=== PATIENT | male | born 1945 | race American Indian/Alaskan Native ===

== ENCOUNTER 2019-08-01 14:16 | Inpatient (IN) | payer MEDICARE ==
--- NOTE | 2019-08-01 16:13 | Emergency Department Report ---
ED Shortness of Breath HPI - General Chief Complaint: Weakness Stated Complaint: BRAYCARDIA Time Seen by Provider: 08/01/19 15:17 Source: patient, EMS Mode of arrival: Stretcher Limitations: Physical Limitation - History of Present Illness Initial Comments: 73-year-old male the past medical history hypertension, diabetes, COPD without home oxygen use, renal insufficiency not on dialysis, lung cancer treated with chemotherapy or radiation, thyroid cancer (current monitoring without active treatment), CVA residual right-sided weakness presents to the hospital complains of shortness of breath with exertion 2 weeks. Patient has associated weakness with shortness of breath episodes. He complains of some mild epigastric discomfort with deep inspiration. And lower back Today he felt scared to get up and walk due to the symptoms. He denies nausea, vomiting, fever, chest pain, diarrhea, or recent travel. Patient does not smoke cigarettes currently. PMD affiliated with the [facility]. Patient denies cardiac history. He is unsure of his current medications. - Related Data Allergies Allergy/AdvReac Type Severity Reaction Status Date / Time No Known Allergies Allergy Unverified 08/01/19 14:37 ED Review of Systems ROS: Stated complaint: BRAYCARDIA Other details as noted in HPI Comment: All other systems reviewed and negative ED Past Medical Hx - Past Medical History Previous Medical History?: Yes Hx Hypertension: Yes Hx Diabetes: Yes Hx Renal Disease: Yes (not on dialysis) Hx of Cancer: Yes (Lung and thyroid) Hx COPD: Yes - Surgical History Past Surgical History?: Yes ED Physical Exam - General Limitations: Physical Limitation - Other Other exam information: General: No acute distress Head: Atraumatic Eyes: normal appearance ENT: Moist mucous membranes Neck: Normal appearance, no midline tenderness Chest: Clear to auscultation bilaterally CV: Bradycardic regular rhythm Abdomen: Soft, normal bowel sounds, nontender, nondistended, no rebound or guarding Back: Normal inspection Extremity: Normal inspection infection, full range of motion, no calf tenderness or leg edema Neuro: Alert O x 3, no facial asymmetry, speech clear, no gross motor sensory deficit Psych: Appropriate behavior Skin: No rash ED Course Vital Signs 08/01/19 08/01/19 08/01/19 16:02 16:16 16:30 Pulse Rate 45 L 42 L Respiratory 16 20 20 Rate Blood Pressure 125/52 O2 Sat by Pulse 98 97 99 Oximetry 08/01/19 08/01/19 16:46 17:00 Pulse Rate Respiratory 17 19 Rate Blood Pressure 120/54 125/52 O2 Sat by Pulse 97 98 Oximetry - Consultations Consultation #1: 08/01/19 15:50 case d/w Dr Méndez (cardiology) will come to bedside to eval pt 17:11 case d/w industrial ecology technician Dr. Richard. Agrees with treatment for hyperkalemia (all meds provided with exception a Kayexalate). Recommends recheck of potassium after ED treatment. Will evaluate in consultation ED Medical Decision Making - Lab Data Result diagrams: 08/01/19 15:43 08/01/19 15:43 Lab Results 08/01/19 08/01/19 08/01/19 Range/Units 15:43 15:43 15:43 WBC 8.1 (4.5-11.0) K/mm3 RBC 3.44 L (3.65-5.03) M/mm3 Hgb 10.4 L (11.8-15.2) gm/dl Hct 31.7 L (35.5-45.6) % MCV 92 (84-94) fl MCH 30 (28-32) pg MCHC 33 (32-34) % RDW 13.9 (13.2-15.2) % Plt Count 187 (140-440) K/mm3 Lymph % (Auto) 6.8 L (13.4-35.0) % [place] % (Auto) 3.2 (0.0-7.3) % Eos % (Auto) 1.2 (0.0-4.3) % Baso % (Auto) 0.8 (0.0-1.8) % Lymph # 0.6 L (1.2-5.4) K/mm3 [place] # 0.3 (0.0-0.8) K/mm3 Eos # 0.1 (0.0-0.4) K/mm3 Baso # 0.1 (0.0-0.1) K/mm3 Seg Neutrophils % 88.0 H (40.0-70.0) % Seg Neutrophils # 7.1 (1.8-7.7) K/mm3 PT (12.2-14.9) Sec. INR (0.87-1.13) APTT (24.2-36.6) Sec. Sodium 141 (137-145) mmol/L Potassium 5.7 H (3.6-5.0) mmol/L Chloride 113.7 H (98-107) mmol/L Carbon Dioxide 11 L (22-30) mmol/L Anion Gap 22 mmol/L BUN 65 H (9-20) mg/dL Creatinine 5.9 H (0.8-1.5) mg/dL Estimated GFR 9 ml/min BUN/Creatinine Ratio 11 % Glucose 149 H (75-100) mg/dL Calcium 8.8 (8.4-10.2) mg/dL Magnesium 1.60 L (1.7-2.3) mg/dL Troponin T 0.076 H (0.00-0.029) ng/mL TSH (0.270-4.200) mlU/mL Free T4 (0.76-1.46) ng/dL 08/01/19 08/01/19 Range/Units 15:54 15:55 WBC (4.5-11.0) K/mm3 RBC (3.65-5.03) M/mm3 Hgb (11.8-15.2) gm/dl Hct (35.5-45.6) % MCV (84-94) fl MCH (28-32) pg MCHC (32-34) % RDW (13.2-15.2) % Plt Count (140-440) K/mm3 Lymph % (Auto) (13.4-35.0) % [place] % (Auto) (0.0-7.3) % Eos % (Auto) (0.0-4.3) % Baso % (Auto) (0.0-1.8) % Lymph # (1.2-5.4) K/mm3 [place] # (0.0-0.8) K/mm3 Eos # (0.0-0.4) K/mm3 Baso # (0.0-0.1) K/mm3 Seg Neutrophils % (40.0-70.0) % Seg Neutrophils # (1.8-7.7) K/mm3 PT 14.4 (12.2-14.9) Sec. INR 1.11 (0.87-1.13) APTT 29.7 (24.2-36.6) Sec. Sodium (137-145) mmol/L Potassium (3.6-5.0) mmol/L Chloride (98-107) mmol/L Carbon Dioxide (22-30) mmol/L Anion Gap mmol/L BUN (9-20) mg/dL Creatinine (0.8-1.5) mg/dL Estimated GFR ml/min BUN/Creatinine Ratio % Glucose (75-100) mg/dL Calcium (8.4-10.2) mg/dL Magnesium (1.7-2.3) mg/dL Troponin T (0.00-0.029) ng/mL TSH 2.630 (0.270-4.200) mlU/mL Free T4 1.15 (0.76-1.46) ng/dL - EKG Data -: EKG Interpreted by Me ( no stemi) Rate: bradycardia (40) - Radiology Data Radiology results: report reviewed Chest x-ray: Parenchymal disease in the right suprahilar region may be inflammatory or neoplastic. Prior studies would be helpful for comparison if available. - Medical Decision Making Patient presents with a junctional rhythm but is maintaining his blood pressure. Patient has renal sufficiency with unknown baseline per presents with anion gap acidosis and hyperkalemia. Case discussed both with nephrology and cardiology customer service and sales consultant. Cardiology evaluated patient in the ED and nephrology will consulted while patient while admitted. Hyperkalemia cocktail administered with exception of Kayexalate as discussed with nephrology. Hospitalist informed for admission. Aspirin provided for mild elevated troponin likely secondary to renal insuf ficienc, repeat pending. Pt does not have cp. - Differential Diagnosis electrolyte abnormality, CHF, COPD, PE, [place], unstable angina, renal failure Critical Care Time: No Critical care attestation.: If time is entered above; I have spent that time in minutes in the direct care of this critically ill patient, excluding procedure time. ED Disposition Clinical Impression: Dyspnea on exertion, Hyperkalemia, Renal insufficiency, Metabolic acidosis, increased anion gap, Hypomagnesemia, Elevated troponin, Hx of cancer of lung, Thyroid ca, COPD (chronic obstructive pulmonary disease), HTN (hypertension), History of CVA with residual deficit, Junctional bradycardia Disposition: OP ADMIT IP TO THIS HOSP Is pt being admited?: Yes Does the pt Need Aspirin: Yes Condition: Stable Referrals: RUFINA CHASE MD [Primary Care Provider] - 3-5 Days Time of Disposition: 16:53
--- NOTE | 2019-08-01 16:17 | XRay Report ---
CHEST 1 VIEW 3:49 PM INDICATION / CLINICAL INFORMATION: Shortness of breath. COMPARISON: None available. FINDINGS: SUPPORT DEVICES: There is a right jugular Port-A-Cath with the tip overlying the distal SVC. HEART / MEDIASTINUM: The heart size and pulmonary vasculature are normal. LUNGS / PLEURA: There is mild, localized poorly defined parenchymal opacity in the right suprahilar r egion medially. The lungs are otherwise clear. No pneumothorax. ADDITIONAL FINDINGS: No significant additional findings. IMPRESSION: Parenchymal disease in the right suprahilar region may be inflammatory or neoplastic. Deana or studies would be helpful for comparison if available. Signer Name: Andreas Sotrey MD Signed: 08/01/2019 4:13 PM Workstation Name: [id number]
[2019-08-01 16:22] LABS: Basophils # (Auto) 0.1 K/mm3 (0.0-0.1); Basophils % (Auto) 0.8 % (0.0-1.8); Eosinophils # (Auto) 0.1 K/mm3 (0.0-0.4); Eosinophils % (Auto) 1.2 % (0.0-4.3); Hematocrit 31.7 % (35.5-45.6); Hemoglobin 10.4 gm/dl (11.8-15.2); Lymphocytes # (Auto) 0.6 K/mm3 (1.2-5.4); Lymphocytes % (Auto) 6.8 % (13.4-35.0); Mean Corpuscular HGB Conc 33 % (32-34); Mean Corpuscular Volume 92 fl (84-94); Monocytes # (Auto) 0.3 K/mm3 (0.0-0.8); Monocytes % (Auto) 3.2 % (0.0-7.3); Platelet Count 187 K/mm3 (140-440); Red Blood Count 3.44 M/mm3 (3.65-5.03); Red Cell Distribution Width 13.9 % (13.2-15.2)
[2019-08-01 16:31] LABS: INR 1.11 (0.87-1.13)
[2019-08-01 16:32] LABS: Partial Thromboplastin Time 29.7 Sec. (24.2-36.6)
[2019-08-01 16:44] LABS: Calcium 8.8 mg/dL (8.4-10.2)
[2019-08-01] MEDS ORDERED: ALBUTEROL 2.5 MG/3 ML NEBU IH ONE (16:49)
[2019-08-01 16:53] LABS: Free T4 (Free Thyroxine) 1.15 ng/dL (0.76-1.46)
[2019-08-01] MEDS ORDERED: SODIUM BICARB 8.4% 50 MEQ/50 ML SYRINGE IV ONE (16:54)
[2019-08-01] MEDS ORDERED: FUROSEMIDE 20 MG/2 ML INJ IV ONE (16:56)
[2019-08-01] MEDS ORDERED: SODIUM CHLORIDE 0.9% 1000 ML 1,000 ML IV ONE (16:56)
[2019-08-01] MEDS ORDERED: INSULIN REGULAR, HUMAN 100 UNITS/1 ML IV ONE (16:57)
--- NOTE | 2019-08-01 17:25 | Consultation ---
History of Present Illness Consult date: 08/01/19 Medications and Allergies Allergies Allergy/AdvReac Type Severity Reaction Status Date / Time No Known Allergies Allergy Unverified 08/01/19 14:37 Active Meds: Active Medications Dextrose (D50w (25gm) Syringe) 50 ml IV ONCE ONE; Protocol Stop: 08/01/19 18:01 Calcium Gluconate 1,000 mg/ (Sodium Chloride) 110 mls @ 660 mls/hr IV ONCE ONE Stop: 08/01/19 18:05 Sodium Chloride (Nacl 0.9% 1000 Ml) 1,000 mls @ 999 mls/hr IV BOLUS ONE Stop: 08/01/19 17:56 Physical Examination Vital Signs Pulse Resp Pulse Ox 45 L 16 98 08/01/19 16:02 08/01/19 16:02 08/01/19 16:02 Results 08/01/19 15:43 08/01/19 15:43 Coagulation 08/01/19 Range/Units 15:55 PT 14.4 (12.2-14.9) Sec. INR 1.11 (0.87-1.13) APTT 29.7 (24.2-36.6) Sec. CBC 08/01/19 Range/Units 15:43 WBC 8.1 (4.5-11.0) K/mm3 RBC 3.44 L (3.65-5.03) M/mm3 Hgb 10.4 L (11.8-15.2) gm/dl Hct 31.7 L (35.5-45.6) % Plt Count 187 (140-440) K/mm3 Lymph # 0.6 L (1.2-5.4) K/mm3 Carbon # 0.3 (0.0-0.8) K/mm3 Eos # 0.1 (0.0-0.4) K/mm3 Baso # 0.1 (0.0-0.1) K/mm3 Comprehensive Metabolic Panel 08/01/19 Range/Units 15:43 Sodium 141 (137-145) mmol/L Potassium 5.7 H (3.6-5.0) mmol/L Chloride 113.7 H (98-107) mmol/L Carbon Dioxide 11 L (22-30) mmol/L BUN 65 H (9-20) mg/dL Creatinine 5.9 H (0.8-1.5) mg/dL Glucose 149 H (75-100) mg/dL Calcium 8.8 (8.4-10.2) mg/dL Assessment and Plan Detailed Cardiology consult dictated.
[2019-08-01] MEDS ORDERED: CALCIUM GLUCONATE 1,000 MG in SODIUM CHLORIDE 0.9% 100 ML IV ONE (17:56)
[2019-08-01] MEDS ORDERED: DEXTROSE 50% IN WATER (25GM) 50 ML SYRINGE IV ONE (18:00)
[2019-08-01 20:08] LABS: Chol/HDL Ratio 3.31 %
[2019-08-01 21:23] LABS: Amphetamine Screen,Urine PRESUMPTIVE NEGATIVE; Benzodiazepines Screen,Urine PRESUMPTIVE NEGATIVE; Cannabinoid Screen,Urine PRESUMPTIVE NEGATIVE; Cocaine Screen,Urine PRESUMPTIVE NEGATIVE; Methadone Screen,Urine PRESUMPTIVE NEGATIVE; Opiate Screen,Urine PRESUMPTIVE NEGATIVE
[2019-08-01] MEDS ORDERED: SODIUM CHLORIDE 0.9% 1000 ML 1,000 ML IV SCH (23:45)
[2019-08-01] MEDS ORDERED: BUDESONIDE IH SCH (23:45)
[2019-08-01] MEDS ORDERED: [UNRECOGNIZED DRUG - OTHER] IH SCH (23:45)
[2019-08-01] MEDS ORDERED: FORMOTEROL FUMARATE IH SCH (23:45)
[2019-08-01] MEDS ORDERED: SODIUM BICARBONATE 650 MG TAB PO SCH (23:45)
[2019-08-01] MEDS ORDERED: ACETAMINOPHEN 325 MG TAB PO PRN (23:55)
[2019-08-01] MEDS ORDERED: ONDANSETRON 4 MG/2 ML INJ IV PRN (23:55)
[2019-08-02] MEDS ORDERED: ALBUTEROL 2.5 MG/3 ML NEBU IH PRN (00:08)
--- NOTE | 2019-08-02 00:18 | Consultation ---
CARDIOLOGY CONSULTATION REPORT AGE: 73. SEX: Male. REFERRING PHYSICIAN: Dr. Kerry Rodriguez, hospitalist. TIME: 5:15 p.m. Seen under the care by Dr. Zuleyma Pickens. HISTORY OF PRESENT ILLNESS: A 73-year-old pleasant -Citizen Of [place] gentleman with history of multiple medical problems as hypertension, type 2 diabetes mellitus, COPD, severe chronic kidney disease, old CVA with left hemiparesis, was brought to the Emergency Room with a history of fatigue and progressive shortness of breath. He was found to be bradycardic and the EKG revealed the junctional rhythm, complete right bundle-branch block and nonspecific T-wave abnormality in lateral leads. His labs revealed potassium of 5.7, BUN of 65 with creatinine of 5.9. The junctional bradycardia is most likely secondary to hyperkalemia. His first troponin was increased to 0.076. Even though he has chronic kidney disease, his magnesium level came back at 1.6. He is anemic with hemoglobin of 10.4, hematocrit of 31.7. He did not have any chest pain. No history of nausea, vomiting, near syncope or syncope. His chest x-ray, 1 view revealed right suprahilar opacity. PAST MEDICAL HISTORY: History of multiple medical problems as described above. No history of CAD or myocardial infarction in the past. He has a history of carcinoma of the lung and he has received chemotherapy and radiotherapy in the past. He also has a history of thyroid cancer and he has undergone thyroidectomy in the past. Further details are not known at this time. He has end-stage renal disease. 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 No history of drug abuse. FAMILY HISTORY: Negative for premature coronary artery disease. REVIEW OF SYSTEMS: CARDIOVASCULAR: As described in the history. RENAL: As described in the history. METABOLISM AND ENDOCRINOLOGY: As described in the history. PULMONARY: As described in the history. NEUROLOGICAL: As described in the history. BONE AND JOINTS: Negative. METABOLISM AND ENDOCRINOLOGY: As described in the history. Review of rest of the 10 systems is negative. MEDICATIONS: He has received sodium bicarbonate and calcium gluconate intravenously. He has received furosemide 20 mg IV 1 dose and also he has received intravenous insulin. PHYSICAL EXAMINATION: GENERAL: A 73-year-old pleasant -Citizen [place] gentleman. VITAL SIGNS: He is afebrile, pulse 42 per minute regular, blood pressure 126/52, respirations 18 per minute. NEUROLOGIC: He is alert and oriented x 3. HEENT: Negative. NECK: Supple, no JVD, no bruit, no thyromegaly. HEART: PMI shifted laterally and is forcible in nature, no palpable thrills. Auscultation of the heart reveals S1, S2 heard. Bradycardic. S2 is loud. Grade 2/6 soft ejection systolic murmur is heard over the precordium. EXTREMITIES: Peripheral pulses felt. Bilateral trace edema. LUNGS: Air entry equal on both sides. No bronchial breathing, no wheezing. ABDOMEN: Soft, benign. No organomegaly. SKIN: Negative. BONE AND JOINTS: Negative. LABORATORY DATA: Sodium 141, chloride 114, CO2 of 11. Potassium, BUN and creatinine as described in the history. WBC normal, hemoglobin and hematocrit 10.4 and 31.7, respectively. Serum TSH normal, T4 1.15, troponin 0.076. Chest x-ray, 1 view right suprahilar opacity. EKG findings as described in the history. IMPRESSION: 1. Progressive shortness of breath. 2. Hyperkalemia with end-stage renal disease. 3. Junctional bradycardia with right bundle-branch block. 5. Mildly increased troponins; however, serial troponins will be followed up. 6. Old cerebrovascular accident with left hemiparesis. 7. History of thyroid cancer and surgery for the same 20 years ago. 8. History of carcinoma of the lung, status post chemotherapy and radiotherapy in the past. RECOMMENDATIONS: 1. We will repeat serum magnesium level in the a.m. 2. Treatment of hyperkalemia that is being done. 3. Would order echocardiogram in the a.m. to follow up ventricular function and to rule out any pericardial effusion. Further recommendations will follow. Thanking again. JOB# [id number] [facility]
[2019-08-02] MEDS: carvediloL 25 MG TAB PO SCH ×3 (06:13→21:24)
[2019-08-02] MEDS: NIFEdipine XL 60 MG TAB PO SCH ×3 (06:13→21:20)
[2019-08-02] MEDS: FUROSEMIDE 40 MG TAB PO SCH ×2 (06:13→18:18)
[2019-08-02 06:32] LABS: Basophils % (Auto) 0.7 % (0.0-1.8); Eosinophils # (Auto) 0.2 K/mm3 (0.0-0.4); Eosinophils % (Auto) 3.8 % (0.0-4.3); Hematocrit 29.3 % (35.5-45.6); Hemoglobin 9.7 gm/dl (11.8-15.2); Lymphocytes # (Auto) 0.8 K/mm3 (1.2-5.4); Lymphocytes % (Auto) 15.2 % (13.4-35.0); Mean Corpuscular HGB Conc 33 % (32-34); Mean Corpuscular Volume 92 fl (84-94); Monocytes # (Auto) 0.5 K/mm3 (0.0-0.8); Monocytes % (Auto) 10.6 % (0.0-7.3); Platelet Count 156 K/mm3 (140-440); Red Blood Count 3.19 M/mm3 (3.65-5.03); Red Cell Distribution Width 13.7 % (13.2-15.2)
[2019-08-02 06:57] LABS: Albumin 3.6 g/dL (3.9-5); Calcium 8.7 mg/dL (8.4-10.2)
[2019-08-02] MEDS ORDERED: NON-FORMULARY EACH (Hydralazine Hcl [Hydralazine Hcl] 50 MG) PO SCH (08:00)
[2019-08-02] MEDS: hydrALAZINE 25 MG TAB PO SCH ×3 (08:47→21:20)
[2019-08-02] MEDS: diphenhydrAMINE 25 MG CAP PO PRN ×2 (08:48→18:18)
--- NOTE | 2019-08-02 08:56 | Event Note ---
Date: 08/01/19 See history and physical in the reports Hyperkalemia CHF exacerbation
[2019-08-02] MEDS: ALBUTEROL 2.5 MG/3 ML NEBU IH SCH ×4 (09:20→20:18)
[2019-08-02] MEDS: ARFORMOTEROL 15 MCG/2 ML NEBU IH SCH ×2 (09:20→20:17)
[2019-08-02] MEDS: BUDESONIDE 0.5 MG/2 ML NEBU IH SCH ×2 (09:21→20:18)
--- NOTE | 2019-08-02 09:56 | Consultation ---
History of Present Illness - Reason for Consult Consult date: 08/02/19 chronic renal failure, hyperkalemia Requesting physician: DAREN NOLAN - History of Present Illness 73-year-old male the past medical history hypertension, diabetes, COPD without home oxygen use, renal insufficiency not on dialysis, lung cancer treated with chemotherapy or radiation, thyroid cancer (current monitoring without active treatment), CVA residual right-sided weakness presents to the hospital complains of shortness of breath with exertion 2 weeks. Patient has associated weakness with shortness of breath episodes. He complains of some mild epigastric discomfort with deep inspiration. And lower back Today he felt scared to get up and walk due to the symptoms. He denies nausea, vomiting, fever, chest pain, diarrhea, or recent travel. Patient does not smoke cigarettes currently. PMD affiliated with the [facility]. Patient denies cardiac history. He is unsure of his current medications. ROS: Stated complaint: BRAYCARDIA Other details as noted in HPI Comment: All other systems reviewed and negative - Past Medical History Previous Medical History?: Yes Hx Hypertension: Yes Hx Diabetes: Yes Hx Renal Disease: Yes (not on dialysis) Hx of Cancer: Yes (Lung and thyroid) Hx COPD: Yes - Surgical History Past Surgical History?: Yes Medications and Allergies Allergies Allergy/AdvReac Type Severity Reaction Status Date / Time No Known Allergies Allergy Unverified 08/01/19 14:37 Home Medications Medication Instructions Recorded Confirmed Last Taken Type Albuterol Sulfate [Proair 2 puff IH QID 08/01/19 08/01/19 Unknown History Respiclick] Atorvastatin Calcium [Lipitor] 80 mg PO DAILY 08/01/19 08/01/19 Unknown History Budesonide/Formoterol Fumarate 2 puff IH BID 08/01/19 08/01/19 Unknown History [Symbicort 80-4.5 Mcg Inhaler] Difluprednate [Durezol 0.05%] 1 drop OP QID 08/01/19 08/01/19 Unknown History Furosemide [Lasix TAB] 40 mg PO BID 08/01/19 08/01/19 Unknown History Glycerin/Propylene Glycol 1 drop OP QID 08/01/19 08/01/19 Unknown History [Artificial Tears Drops] Hydralazine HCl 50 mg PO TID 08/01/19 08/01/19 Unknown History Insulin Aspart (Nf) [Novolog] unit SQ TID 08/01/19 08/01/19 Unknown History Insulin Glargine [Lantus VIAL] 22 unit SUB-Q DAILY 08/01/19 08/01/19 Unknown History NIFEdipine [Nifedipine ER] 60 mg PO BID 08/01/19 08/01/19 Unknown History Omeprazole 40 mg PO DAILY 08/01/19 08/01/19 Unknown History Sodium Bicarbonate 650 mg PO BID 08/01/19 08/01/19 Unknown History calcitrioL [Rocaltrol] 1 mcg PO QDAY 08/01/19 08/01/19 Unknown History carvediloL [Coreg] 25 mg PO BID 08/01/19 08/01/19 Unknown History lisinopriL [Zestril] 20 mg PO QDAY 08/01/19 08/01/19 Unknown History Active Meds: Active Medications Acetaminophen (Tylenol) 650 mg PO Q4H PRN PRN Reason: Pain MILD(1-3)/Fever >100.5/LEDEZMA Albuterol (Proventil) 2.5 mg IH QIDRT [facility] Last Admin: 08/02/19 09:20 Dose: Not Given Documented by: Albuterol (Proventil) 2.5 mg IH Q4HRT PRN PRN Reason: Shortness Of Breath Arformoterol Tartrate (Brovana Nebu) 15 mcg IH Q12HRT [facility] Last Admin: 08/02/19 09:20 Dose: Not Given Documented by: Budesonide (Pulmicort) 0.5 mg IH Q12HRT [facility] Last Admin: 08/02/19 09:21 Dose: Not Given Documented by: Calcitriol (Rocaltrol) 1 mcg PO QDAY [facility] Carvedilol (Coreg) 25 mg PO BID [facility] Last Admin: 08/02/19 06:13 Dose: Not Given Documented by: Diphenhydramine HCl (Benadryl) 25 mg PO Q6H PRN PRN Reason: Itching Last Admin: 08/02/19 08:48 Dose: 25 mg Documented by: Furosemide (Lasix) 40 mg PO BID@0600,1800 [facility] Last Admin: 08/02/19 06:13 Dose: 40 mg Documented by: Hydralazine HCl (Apresoline) 50 mg PO TID [facility] Last Admin: 08/02/19 08:47 Dose: 50 mg Documented by: Hydromorphone HCl (Dilaudid) 0.5 mg IV Q3H PRN PRN Reason: Pain , Severe (7-10) Sodium Chloride (Nacl 0.9% 1000 Ml) 1,000 mls @ 75 mls/hr IV DIRECT SCOT Stop: 08/02/19 11:00 Insulin Glargine (Lantus) 22 units SUB-Q DAILY [facility] Lisinopril (Zestril) 20 mg PO QDAY [facility] Miscellaneous Medication (Difluprednate [Durezol 0.05%]) 1 drop OP QID [facility] Miscellaneous Medication (Glycerin/Propylene Glycol [Artificial Tears Drops]) 1 drop OP QID [facility] Nifedipine (Procardia Xl) 60 mg PO BID [facility] Last Admin: 08/02/19 06:13 Dose: Not Given Documented by: Ondansetron HCl (Zofran) 4 mg IV Q8H PRN PRN Reason: Nausea And Vomiting Oxycodone/Acetaminophen (Percocet 5/325) 1 tab PO Q6H PRN PRN Reason: Pain, Moderate (4-6) Pantoprazole Sodium (Protonix) 40 mg PO DAILY [facility] Sodium Bicarbonate (Sodium Bicarbonate) 650 mg PO BID [facility] Last Admin: 08/02/19 06:13 Dose: Not Given Documented by: Sodium Chloride (Sodium Chloride Flush Syringe 10 Ml) 10 ml IV BID [facility] Sodium Chloride (Sodium Chloride Flush Syringe 10 Ml) 10 ml IV PRN PRN PRN Reason: LINE FLUSH Exam - Vital Signs Vital signs: Vital Signs Pulse Resp Pulse Ox 45 L 16 98 08/01/19 16:02 08/01/19 16:02 08/01/19 16:02 - Physical Exam Narrative exam: General: No acute distress Head: Atraumatic Eyes: normal appearance ENT: Moist mucous membranes Neck: Normal appearance, no midline tenderness Chest: Clear to auscultation bilaterally CV: Bradycardic regular rhythm Abdomen: Soft, normal bowel sounds, nontender, nondistended, no rebound or guarding Back: Normal inspection Extremity: Normal inspection infection, full range of motion, no calf tenderness or leg edema Neuro: Alert O x 3, no facial asymmetry, speech clear, no gross motor sensory deficit Psych: Appropriate behavior Skin: No rash Results - Lab Results 08/02/19 06:00 08/02/19 06:00 Most recent lab results Calcium 8.7 mg/dL (8.4-10.2) 08/02/19 06:00 Magnesium 1.60 mg/dL (1.7-2.3) L 08/02/19 06:00 Assessment and Plan IMpression: * slim on likely ckd stage 4 * hyperkalemia * met acidosis * Lung cancer * Thryroid cancer * HTN Plan: * follow up crcl * yobani close to baseline, followed by nephrology at the [facility] * treat k medically * renal diet * kayexalate prn * add po sodium bicarb * no emergent indication for ELECTRICAL DESIGN TECHNOLOGIST at this time
[2019-08-02] MEDS ORDERED: NON-FORMULARY EACH (Omeprazole [Omeprazole] 40 MG) PO SCH (10:00)
[2019-08-02] MEDS ORDERED: PROPYLENE GLYCOL OP SCH (10:00)
[2019-08-02] MEDS ORDERED: GLYCERIN OP SCH (10:00)
[2019-08-02] MEDS ORDERED: DIFLUPREDNATE OP SCH (10:00)
[2019-08-02] MEDS ORDERED: NON-FORMULARY EACH (Albuterol Sulfate [Proair Respiclick] 2 PUFF) IH SCH (10:00)
[2019-08-02] MEDS: CALCITRIOL 0.5 MCG CAP PO SCH (10:46)
[2019-08-02] MEDS: PANTOPRAZOLE 40 MG TAB PO SCH (10:46)
[2019-08-02] MEDS: LISINOPRIL 20 MG TAB PO SCH (10:47)
--- NOTE | 2019-08-02 10:47 | Progress Note ---
Assessment and Plan Cardiac status is improving. Continue current management. Junctional rhythm irregularities likely r/t hyperkalemia. Will closely monitor electrolytes. The patient has been seen in conjunction with Dr. De La Garza, who agrees with the assessment and plan. - Patient Problems (1) Hyperkalemia Current Visit: Yes Status: Acute (2) Elevated troponin Current Visit: Yes Status: Acute (3) Junctional bradycardia Current Visit: Yes Status: Acute (4) HTN (hypertension) Current Visit: Yes Status: Chronic (5) COPD (chronic obstructive pulmonary disease) Current Visit: Yes Status: Chronic (6) Diabetes Current Visit: Yes Status: Chronic (7) History of CVA with residual deficit Current Visit: Yes Status: Acute (8) Hx of cancer of lung Current Visit: Yes Status: Acute (9) Renal insufficiency Current Visit: Yes Status: Acute (10) Thyroid ca Current Visit: Yes Status: Acute Subjective Date of service: 08/02/19 Interval history: The patient is lying in bed in [facility]. He has c/o right hip/groin pain. Telemetry reviewed - mostly SR in 60s and 70s with some junctional beats. Ectopy greatly improved. Objective Last Vital Signs Temp 98.3 F 08/02/19 08:15 Pulse 70 08/02/19 08:47 Resp 20 08/02/19 08:15 BP 175/74 08/02/19 08:47 Pulse Ox 97 08/02/19 08:15 - Physical Examination General: No Apparent Distress HEENT: Positive: PERRL Neck: Positive: neck supple Cardiac: Positive: Irregularly Regular Lungs: Positive: Normal Exam Neuro: Positive: Grossly Intact Abdomen: Positive: Unremarkable /Rectal: Other Skin: Positive: Clear Musculoskeletal: Normal Range of Motion, other (c/o right hip pain ) Extremities: Present: normal - Labs and Meds Cardiac Enzymes 08/02/19 Range/Units 06:00 AST 15 (5-40) units/L Coagulation 08/01/19 Range/Units 15:55 PT 14.4 (12.2-14.9) Sec. INR 1.11 (0.87-1.13) APTT 29.7 (24.2-36.6) Sec. Lipids 08/01/19 Range/Units 15:43 Triglycerides 88 (2-149) mg/dL Cholesterol 106 (50-199) mg/dL HDL Cholesterol 32 L (40-59) mg/dL Cholesterol/HDL Ratio 3.31 % CBC 08/01/19 08/02/19 Range/Units 15:43 06:00 WBC 8.1 5.0 (4.5-11.0) K/mm3 RBC 3.44 L 3.19 L (3.65-5.03) M/mm3 Hgb 10.4 L 9.7 L (11.8-15.2) gm/dl Hct 31.7 L 29.3 L (35.5-45.6) % Plt Count 187 156 (140-440) K/mm3 Lymph # 0.6 L 0.8 L (1.2-5.4) K/mm3 [place] # 0.3 0.5 (0.0-0.8) K/mm3 Eos # 0.1 0.2 (0.0-0.4) K/mm3 Baso # 0.1 0.0 (0.0-0.1) K/mm3 Comprehensive Metabolic Panel 08/01/19 08/02/19 Range/Units 15:43 06:00 Sodium 141 143 (137-145) mmol/L Potassium 5.7 H 4.9 (3.6-5.0) mmol/L Chloride 113.7 H 113.9 H (98-107) mmol/L Carbon Dioxide 11 L 16 L (22-30) mmol/L BUN 65 H 65 H (9-20) mg/dL Creatinine 5.9 H 5.8 H (0.8-1.5) mg/dL Glucose 149 H 120 H (75-100) mg/dL Calcium 8.8 8.7 (8.4-10.2) mg/dL AST 15 (5-40) units/L ALT 14 (7-56) units/L Alkaline Phosphatase 77 (35-129) units/L Total Protein 7.2 (6.3-8.2) g/dL Albumin 3.6 L (3.9-5) g/dL
--- NOTE | 2019-08-02 12:48 | Ultrasound Report ---
Renal ultrasound. 08/02/2019. HISTORY: Renal failure. FINDINGS: Right kidney measures 12.1 cm. Cortex measures 1.4 cm. Left kidney measures 11.4 cm. Cortex measures 1.6 cm. A benign cyst at the lower pole of the right kidney measures 1.8 cm. Moderate increased cortical echo genicity is present bilaterally. The bladder is distended with a volume of 341 cc's. Post void residual is 123 cc's. IMPRESSION: 1. Increased cortical echogenicity bilaterally compatible with chronic medical renal disease. 2. Large post void residual. 3. 9 appearing right renal cyst. Signer Name: Saad Melvin MD Signed: 08/02/2019 12:43 PM Workstation Name: [id number]
--- NOTE | 2019-08-02 13:51 | Event Note ---
Date: 08/02/19 Called by RN after EKG revealed new second-degree, Type 1 block and HRs intermittently dropping into 30s. He is asymptomatic. Will decrease Coreg to 12.5 mg BID - can further downtitrate if needed. Bill Jacobson NP / Vlad De La Garza MD
[2019-08-02] MEDS: SODIUM BICARBONATE 650 MG TAB PO SCH ×2 (14:00→21:21)
[2019-08-02] MEDS: INSULIN GLARGINE 100 UNITS/ML SUB-Q SCH (14:31)
[2019-08-02 14:33] LABS: Bilirubin,Urine NEG (Negative); Blood,Urine SM (Negative); Color,Urine Straw (Yellow); Urobilinogen,Urine < 2.0 mg/dL (<2.0)
--- NOTE | 2019-08-02 17:37 | History and Physical Report ---
History of Present Illness Date of examination: 08/01/19 Date of admission: 08/01/19 17:17 Chief complaint: Shortness of breath for 2 weeks History of present illness: 73-year-old male with past medical history hypertension, diabetes, COPD without home oxygen use, renal insufficiency not on dialysis, lung cancer treated with chemotherapy and radiation, thyroid cancer (current monitoring without active treatment), CVA residual right-sided weakness presents to the hospital complains of shortness of breath with exertion 2 weeks. Patient has associated weakness with shortness of breath episodes. He complains of some mild epigastric discomfort with deep inspiration. And lower back Today he felt scared to get up and walk due to the symptoms. He denies nausea, vomiting, fever, chest pain, diarrhea, or recent travel. Patient does not smoke cigarettes currently. PMD affiliated with the [facility]. Patient denies cardiac history. He is unsure of his current medications. - Related Data Allergies Allergy/AdvReac Type Severity Reaction Status Date / Time No Known Allergies Allergy Unverified 08/01/19 14:37 - Past Medical History Previous Medical History?: Yes Hypertension: Yes Diabetes: Yes Renal Disease: Yes (not on dialysis) Cancer: Yes (Lung and thyroid) history COPD: Yes Surgical History Past Surgical History?: Yes Appendectomy Thyroid surgery Right chest wall abscess I&D Inguinal abscess I&D Family history HTN Social history former smoker Review of Systems ROS: Stated complaint: SOB on exertion. Other details as noted in HPI Comment: All other systems reviewed and negative Medications and Allergies Allergies Allergy/AdvReac Type Severity Reaction Status Date / Time No Known Allergies Allergy Unverified 08/01/19 14:37 Home Medications Medication Instructions Recorded Confirmed Last Taken Type Albuterol Sulfate [Proair 2 puff IH QID 08/01/19 08/01/19 Unknown History Respiclick] Atorvastatin Calcium [Lipitor] 80 mg PO DAILY 08/01/19 08/01/19 Unknown History Budesonide/Formoterol Fumarate 2 puff IH BID 08/01/19 08/01/19 Unknown History [Symbicort 80-4.5 Mcg Inhaler] Difluprednate [Durezol 0.05%] 1 drop OP QID 08/01/19 08/01/19 Unknown History Furosemide [Lasix TAB] 40 mg PO BID 08/01/19 08/01/19 Unknown History Glycerin/Propylene Glycol 1 drop OP QID 08/01/19 08/01/19 Unknown History [Artificial Tears Drops] Hydralazine HCl 50 mg PO TID 08/01/19 08/01/19 Unknown History Insulin Aspart (Nf) [Novolog] 12 unit SQ TID 08/01/19 08/01/19 Unknown History Insulin Glargine [Lantus VIAL] 22 unit SUB-Q DAILY 08/01/19 08/01/19 Unknown History NIFEdipine [Nifedipine ER] 60 mg PO BID 08/01/19 08/01/19 Unknown History Omeprazole 40 mg PO DAILY 08/01/19 08/01/19 Unknown History Sodium Bicarbonate 650 mg PO BID 08/01/19 08/01/19 Unknown History calcitrioL [Rocaltrol] 1 mcg PO QDAY 08/01/19 08/01/19 Unknown History carvediloL [Coreg] 25 mg PO BID 08/01/19 08/01/19 Unknown History lisinopriL [Zestril] 20 mg PO QDAY 08/01/19 08/01/19 Unknown History Active Meds: Active Medications Acetaminophen (Tylenol) 650 mg PO Q4H PRN PRN Reason: Pain MILD(1-3)/Fever >100.5/LEDEZMA Albuterol (Proventil) 2.5 mg IH QIDRT [facility] Last Admin: 08/02/19 16:20 Dose: 2.5 mg Documented by: Albuterol (Proventil) 2.5 mg IH Q4HRT PRN PRN Reason: Shortness Of Breath Arformoterol Tartrate (Brovana Nebu) 15 mcg IH Q12HRT [facility] Last Admin: 08/02/19 09:20 Dose: Not Given Documented by: Budesonide (Pulmicort) 0.5 mg IH Q12HRT [facility] Last Admin: 08/02/19 09:21 Dose: Not Given Documented by: Calcitriol (Rocaltrol) 1 mcg PO QDAY [facility] Last Admin: 08/02/19 10:46 Dose: 1 mcg Documented by: Carvedilol (Coreg) 12.5 mg PO BID [facility] Diphenhydramine HCl (Benadryl) 25 mg PO Q6H PRN PRN Reason: Itching Last Admin: 08/02/19 08:48 Dose: 25 mg Documented by: Furosemide (Lasix) 40 mg PO BID@0600,1800 [facility] Last Admin: 08/02/19 06:13 Dose: 40 mg Documented by: Hydralazine HCl (Apresoline) 50 mg PO TID [facility] Last Admin: 08/02/19 14:00 Dose: 50 mg Documented by: Hydromorphone HCl (Dilaudid) 0.5 mg IV Q3H PRN PRN Reason: Pain , Severe (7-10) Insulin Glargine (Lantus) 22 units SUB-Q DAILY [facility] Last Admin: 08/02/19 14:31 Dose: 22 units Documented by: Lisinopril (Zestril) 20 mg PO QDAY [facility] Last Admin: 08/02/19 10:47 Dose: 20 mg Documented by: Miscellaneous Medication (Difluprednate [Durezol 0.05%]) 1 drop OP QID [facility] Miscellaneous Medication (Glycerin/Propylene Glycol [Artificial Tears Drops]) 1 drop OP QID [facility] Nifedipine (Procardia Xl) 60 mg PO BID [facility] Last Admin: 08/02/19 10:47 Dose: 60 mg Documented by: Ondansetron HCl (Zofran) 4 mg IV Q8H PRN PRN Reason: Nausea And Vomiting Oxycodone/Acetaminophen (Percocet 5/325) 1 tab PO Q6H PRN PRN Reason: Pain, Moderate (4-6) Pantoprazole Sodium (Protonix) 40 mg PO DAILY [facility] Last Admin: 08/02/19 10:46 Dose: 40 mg Documented by: Sodium Bicarbonate (Sodium Bicarbonate) 1,300 mg PO BID [facility] Last Admin: 08/02/19 14:00 Dose: 1,300 mg Documented by: Sodium Chloride (Sodium Chloride Flush Syringe 10 Ml) 10 ml IV BID [facility] Last Admin: 08/02/19 10:46 Dose: 10 ml Documented by: Sodium Chloride (Sodium Chloride Flush Syringe 10 Ml) 10 ml IV PRN PRN PRN Reason: LINE FLUSH Exam - Constitutional Vitals: Temp Pulse Resp BP Pulse Ox 98.9 F 53 L 16 174/73 9 L 08/02/19 15:40 08/02/19 16:23 08/02/19 16:23 08/02/19 15:40 08/02/19 15:40 General appearance: Present: no acute distress, well-nourished - EENT Eyes: Present: PERRL ENT: hearing intact, clear oral mucosa - Neck Neck: Present: supple, normal ROM - Respiratory Respiratory effort: normal Respiratory: bilateral: CTA - Cardiovascular Heart rate: 52 Rhythm: regular (52) Heart Sounds: Present: S1 & S2. Absent: rub, click - Extremities Extremities: no ischemia, pulses intact, pulses symmetrical, No edema Peripheral Pulses: within normal limits - Abdominal General gastrointestinal: Present: soft, non-tender, non-distended, normal bowel sounds Male genitourinary: Present: normal - Integumentary Integumentary: Present: clear, warm, dry - Musculoskeletal Musculoskeletal: gait normal, strength equal bilaterally - Psychiatric Psychiatric: appropriate mood/affect, intact judgment & insight - Neurologic Neurologic: CNII-XII intact, moves all extremities - Allied Health Allied health notes reviewed: nursing, case management Results - Labs CBC & Chem 7: 08/03/19 05:09 08/03/19 05:09 Labs: Laboratory Last Values WBC 5.0 K/mm3 (4.5-11.0) 08/02/19 06:00 RBC 3.19 M/mm3 (3.65-5.03) L 08/02/19 06:00 Hgb 9.7 gm/dl (11.8-15.2) L 08/02/19 06:00 Hct 29.3 % (35.5-45.6) L 08/02/19 06:00 MCV 92 fl (84-94) 08/02/19 06:00 MCH 30 pg (28-32) 08/02/19 06:00 MCHC 33 % (32-34) 08/02/19 06:00 RDW 13.7 % (13.2-15.2) 08/02/19 06:00 Plt Count 156 K/mm3 (140-440) 08/02/19 06:00 Lymph % (Auto) 15.2 % (13.4-35.0) 08/02/19 06:00 Brooke % (Auto) 10.6 % (0.0-7.3) H 08/02/19 06:00 Eos % (Auto) 3.8 % (0.0-4.3) 08/02/19 06:00 Baso % (Auto) 0.7 % (0.0-1.8) 08/02/19 06:00 Lymph # 0.8 K/mm3 (1.2-5.4) L 08/02/19 06:00 Brooke # 0.5 K/mm3 (0.0-0.8) 08/02/19 06:00 Eos # 0.2 K/mm3 (0.0-0.4) 08/02/19 06:00 Baso # 0.0 K/mm3 (0.0-0.1) 08/02/19 06:00 Seg Neutrophils % 69.7 % (40.0-70.0) 08/02/19 06:00 Seg Neutrophils # 3.5 K/mm3 (1.8-7.7) 08/02/19 06:00 PT 14.4 Sec. (12.2-14.9) 08/01/19 15:55 INR 1.11 (0.87-1.13) 08/01/19 15:55 APTT 29.7 Sec. (24.2-36.6) 08/01/19 15:55 Sodium 143 mmol/L (137-145) 08/02/19 06:00 Potassium 4.9 mmol/L (3.6-5.0) 08/02/19 06:00 Chloride 113.9 mmol/L (98-107) H 08/02/19 06:00 Carbon Dioxide 16 mmol/L (22-30) L 08/02/19 06:00 Anion Gap 18 mmol/L 08/02/19 06:00 BUN 65 mg/dL (9-20) H 08/02/19 06:00 Creatinine 5.8 mg/dL (0.8-1.5) H 08/02/19 06:00 Estimated GFR 12 ml/min 08/02/19 06:00 BUN/Creatinine Ratio 11 % 08/02/19 06:00 Glucose 120 mg/dL (75-100) H 08/02/19 06:00 POC Glucose 174 (70-105) H 08/02/19 15:40 Hemoglobin A1c 6.0 % (4-6) 08/02/19 06:00 Calcium 8.7 mg/dL (8.4-10.2) 08/02/19 06:00 Magnesium 1.60 mg/dL (1.7-2.3) L 08/02/19 06:00 Total Bilirubin 0.20 mg/dL (0.1-1.2) 08/02/19 06:00 AST 15 units/L (5-40) 08/02/19 06:00 ALT 14 units/L (7-56) 08/02/19 06:00 Alkaline Phosphatase 77 units/L (35-129) 08/02/19 06:00 Troponin T 0.063 ng/mL (0.00-0.029) H 08/01/19 18:12 Total Protein 7.2 g/dL (6.3-8.2) 08/02/19 06:00 Albumin 3.6 g/dL (3.9-5) L 08/02/19 06:00 Albumin/Globulin Ratio 1.0 % 08/02/19 06:00 Triglycerides 88 mg/dL (2-149) 08/01/19 15:43 Cholesterol 106 mg/dL (50-199) 08/01/19 15:43 LDL Cholesterol Direct 58 mg/dL (50-130) 08/01/19 15:43 HDL Cholesterol 32 mg/dL (40-59) L 08/01/19 15:43 Cholesterol/HDL Ratio 3.31 % 08/01/19 15:43 TSH 2.630 mlU/mL (0.270-4.200) 08/01/19 15:54 Free T4 1.15 ng/dL (0.76-1.46) 08/01/19 15:54 Urine Color Straw (Yellow) 08/02/19 12:30 Urine Turbidity Clear (Clear) 08/02/19 12:30 Urine pH 5.0 (5.0-7.0) 08/02/19 12:30 Ur Specific [place] 1.010 (1.003-1.030) 08/02/19 12:30 Urine Protein 100 mg/dl mg/dL (Negative) 08/02/19 12:30 Urine Glucose (UA) 50 mg/dL (Negative) 08/02/19 12:30 Urine Ketones Neg mg/dL (Negative) 08/02/19 12:30 Urine Blood Sm (Negative) 08/02/19 12:30 Urine Nitrite Neg (Negative) 08/02/19 12:30 Urine Bilirubin Neg (Negative) 08/02/19 12:30 Urine Urobilinogen < 2.0 mg/dL (<2.0) 08/02/19 12:30 Ur Leukocyte Esterase Neg (Negative) 08/02/19 12:30 Urine WBC (Auto) 1.0 /HPF (0.0-6.0) 08/02/19 12:30 Urine RBC (Auto) 3.0 /HPF (0.0-6.0) 08/02/19 12:30 U Epithel Cells (Auto) < 1.0 /HPF (0-13.0) 08/02/19 12:30 Urine Eosinophils None seen (None Seen) 08/02/19 12:30 Urine Opiates Screen Presumptive negative 08/01/19 21:01 Urine Methadone Screen Presumptive negative 08/01/19 21:01 Ur Barbiturates Screen Presumptive negative 08/01/19 21:01 Ur Phencyclidine Scrn Presumptive negative 08/01/19 21:01 Ur Amphetamines Screen Presumptive negative 08/01/19 21:01 U Benzodiazepines Scrn Presumptive negative 08/01/19 21:01 Urine Cocaine Screen Presumptive negative 08/01/19 21:01 U Marijuana (THC) Screen Presumptive negative 08/01/19 21:01 Drugs of Abuse Note Disclamer 08/01/19 21:01 Short CBC 08/03/19 Range/Units 05:09 WBC 4.7 (4.5-11.0) K/mm3 Hgb 10.0 L (11.8-15.2) gm/dl Hct 29.7 L (35.5-45.6) % Plt Count 173 (140-440) K/mm3 BMP 08/03/19 08/03/19 05:09 05:09 Sodium 143 142 Potassium 4.5 4.5 Chloride 111.7 H 110.9 H Carbon Dioxide 16 L 16 L BUN 62 H 62 H Creatinine 5.6 H 5.6 H Glucose 83 85 Calcium 8.5 8.6 Liver Function 08/03/19 Range/Units 05:09 Total Bilirubin 0.30 (0.1-1.2) mg/dL AST 13 (5-40) units/L ALT 14 (7-56) units/L Alkaline Phosphatase 71 (35-129) units/L Albumin 3.5 L (3.9-5) g/dL Urine 08/02/19 Range/Units 12:30 Urine Color Straw (Yellow) Urine pH 5.0 (5.0-7.0) Ur Specific [place] 1.010 (1.003-1.030) Urine Protein 100 mg/dl (Negative) mg/dL Urine Glucose (UA) 50 (Negative) mg/dL - Imaging and Cardiology EKG: report reviewed (Heart rate of 51, second-degree AV block.) Chest x-ray: report reviewed Imaging and Cardiology: Chest x-ray IMPRESSION: Parenchymal disease in the right suprahilar region may be inflam matory or neoplastic. Prior studies would be helpful for comparison if available. Assessment and Plan Advance Directives: Yes (Full code) VTE prophylaxis?: Chemical Plan of care discussed with patient/family: Yes - Patient Problems (1) Acute exacerbation of CHF (congestive heart failure) Current Visit: Yes Status: Acute Qualifiers: Heart failure type: combined systolic and diastolic Qualified Code(s): I50.43 - Acute on chronic combined systolic (congestive) and diastolic (congestive) heart failure Plan to address problem: Possibly from volume overload May need hemodialysis Cardiology nephrology consult requested (2) Junctional bradycardia Current Visit: Yes Status: Chronic Plan to address problem: Admit to telemetry Check telemetry strips (3) End stage renal disease Current Visit: Yes Status: Chronic Plan to address problem: May end up on dialysis Nephrology consulted (4) History of CVA with residual deficit Current Visit: Yes Status: Chronic Plan to address problem: Supportive care (5) Hyperkalemia Current Visit: Yes Status: Acute Plan to address problem: Hyperkalemia treated Check BMP (6) Hx of cancer of lung Current Visit: Yes Status: Chronic Plan to address problem: In remission (7) Hypomagnesemia Current Visit: Yes Status: Acute Plan to address problem: IV magnesium to be given (8) Insulin dependent diabetes mellitus Current Visit: Yes Status: Chronic Plan to address problem: Continue home insulin and coverage Check A1c (9) HTN (hypertension) Current Visit: Yes Status: Chronic Qualifiers: Hypertension type: essential hypertension Qualified Code(s): I10 - Essential (primary) hypertension Plan to address problem: Continue antihypertensives (10) NSTEMI (non-ST elevated myocardial infarction) Current Visit: Yes Status: Acute Plan to address problem: Elevated troponin may be secondary to end-stage renal disease Cardiology consult was requested (11) Hyperlipidemia Current Visit: Yes Status: Chronic Qualifiers: Hyperlipidemia type: mixed hyperlipidemia Qualified Code(s): E78.2 - Mixed hyperlipidemia Plan to address problem: Continue statins (12) DVT prophylaxis Current Visit: Yes Status: Acute Plan to address problem: On heparin and GI prophylaxis
--- NOTE | 2019-08-02 17:37 | Progress Note ---
Subjective Date of service: 08/02/19 Objective - Constitutional Vitals: Vital Signs - 12hr 08/02/19 08/02/19 08/02/19 08:15 08:47 10:46 Temperature 98.3 F Pulse Rate 64 70 69 Pulse Rate [ Anterior Bilateral Throughout] Respiratory 20 Rate Respiratory Rate [Anterior Bilateral Throughout] Blood Pressure 175/74 175/74 166/66 Blood Pressure [Left] O2 Sat by Pulse 97 Oximetry 08/02/19 08/02/19 08/02/19 10:47 11:00 12:00 Temperature Pulse Rate 69 Pulse Rate [ 60 Anterior Bilateral Throughout] Respiratory 18 Rate Respiratory 16 Rate [Anterior Bilateral Throughout] Blood Pressure 166/66 Blood Pressure [Left] O2 Sat by Pulse Oximetry 08/02/19 08/02/19 08/02/19 13:40 14:00 15:40 Temperature 98.9 F Pulse Rate 40 L 58 L 18 L Pulse Rate [ Anterior Bilateral Throughout] Respiratory 20 18 Rate Respiratory Rate [Anterior Bilateral Throughout] Blood Pressure 165/65 Blood Pressure 165/65 174/73 [Left] O2 Sat by Pulse 100 9 L Oximetry 08/02/19 16:23 Temperature Pulse Rate Pulse Rate [ 53 L Anterior Bilateral Throughout] Respiratory Rate Respiratory 16 Rate [Anterior Bilateral Throughout] Blood Pressure Blood Pressure [Left] O2 Sat by Pulse Oximetry - Labs CBC & Chem 7: 08/02/19 06:00 08/02/19 06:00 Labs: Abnormal lab results 08/01/19 08/01/19 08/01/19 Range/Units 15:43 16:35 18:12 RBC (3.65-5.03) M/mm3 Hgb (11.8-15.2) gm/dl Hct (35.5-45.6) % Esmeralda % (Auto) (0.0-7.3) % Lymph # (1.2-5.4) K/mm3 Chloride (98-107) mmol/L Carbon Dioxide (22-30) mmol/L BUN (9-20) mg/dL Creatinine (0.8-1.5) mg/dL Glucose (75-100) mg/dL POC Glucose 146 H (70-105) Magnesium (1.7-2.3) mg/dL Troponin T 0.063 H (0.00-0.029) ng/mL Albumin (3.9-5) g/dL HDL Cholesterol 32 L (40-59) mg/dL 08/01/19 08/02/19 08/02/19 Range/Units 21:51 06:00 06:00 RBC 3.19 L (3.65-5.03) M/mm3 Hgb 9.7 L (11.8-15.2) gm/dl Hct 29.3 L (35.5-45.6) % Esmeralda % (Auto) 10.6 H (0.0-7.3) % Lymph # 0.8 L (1.2-5.4) K/mm3 Chloride (98-107) mmol/L Carbon Dioxide (22-30) mmol/L BUN (9-20) mg/dL Creatinine (0.8-1.5) mg/dL Glucose (75-100) mg/dL POC Glucose 227 H (70-105) Magnesium 1.60 L (1.7-2.3) mg/dL Troponin T (0.00-0.029) ng/mL Albumin (3.9-5) g/dL HDL Cholesterol (40-59) mg/dL 08/02/19 08/02/19 08/02/19 Range/Units 06:00 12:47 15:40 RBC (3.65-5.03) M/mm3 Hgb (11.8-15.2) gm/dl Hct (35.5-45.6) % Esmeralda % (Auto) (0.0-7.3) % Lymph # (1.2-5.4) K/mm3 Chloride 113.9 H (98-107) mmol/L Carbon Dioxide 16 L (22-30) mmol/L BUN 65 H (9-20) mg/dL Creatinine 5.8 H (0.8-1.5) mg/dL Glucose 120 H (75-100) mg/dL POC Glucose 147 H 174 H (70-105) Magnesium (1.7-2.3) mg/dL Troponin T (0.00-0.029) ng/mL Albumin 3.6 L (3.9-5) g/dL HDL Cholesterol (40-59) mg/dL
[2019-08-03] MEDS: FUROSEMIDE 40 MG TAB PO SCH ×2 (05:04→17:21)
[2019-08-03 06:31] LABS: Basophils % (Auto) 0.6 % (0.0-1.8); Eosinophils # (Auto) 0.3 K/mm3 (0.0-0.4); Eosinophils % (Auto) 5.4 % (0.0-4.3); Hematocrit 29.7 % (35.5-45.6); Lymphocytes # (Auto) 0.8 K/mm3 (1.2-5.4); Lymphocytes % (Auto) 16.2 % (13.4-35.0); Mean Corpuscular HGB Conc 34 % (32-34); Mean Corpuscular Volume 92 fl (84-94); Monocytes # (Auto) 0.4 K/mm3 (0.0-0.8); Monocytes % (Auto) 8.6 % (0.0-7.3); Platelet Count 173 K/mm3 (140-440); Red Blood Count 3.23 M/mm3 (3.65-5.03); Red Cell Distribution Width 13.9 % (13.2-15.2)
[2019-08-03 06:52] LABS: Calcium 8.5 mg/dL (8.4-10.2)
[2019-08-03 06:53] LABS: Albumin 3.5 g/dL (3.9-5); Calcium 8.6 mg/dL (8.4-10.2)
[2019-08-03] MEDS: BUDESONIDE 0.5 MG/2 ML NEBU IH SCH ×2 (07:46→20:15)
[2019-08-03] MEDS: ARFORMOTEROL 15 MCG/2 ML NEBU IH SCH ×2 (07:47→20:15)
[2019-08-03] MEDS: ALBUTEROL 2.5 MG/3 ML NEBU IH SCH ×4 (07:47→20:15)
[2019-08-03] MEDS: LISINOPRIL 20 MG TAB PO SCH (09:20)
[2019-08-03] MEDS: CALCITRIOL 0.5 MCG CAP PO SCH (09:20)
[2019-08-03] MEDS: hydrALAZINE 25 MG TAB PO SCH ×3 (09:21→21:21)
[2019-08-03] MEDS: INSULIN GLARGINE 100 UNITS/ML SUB-Q SCH (09:21)
[2019-08-03] MEDS: SODIUM BICARBONATE 650 MG TAB PO SCH ×3 (09:21→21:16)
[2019-08-03] MEDS: carvediloL 25 MG TAB PO SCH ×2 (09:21→21:17)
[2019-08-03] MEDS: NIFEdipine XL 60 MG TAB PO SCH ×2 (09:21→21:16)
[2019-08-03] MEDS: PANTOPRAZOLE 40 MG TAB PO SCH (09:21)
--- NOTE | 2019-08-03 09:38 | Progress Note ---
Assessment and Plan - Patient Problems (1) Acute exacerbation of CHF (congestive heart failure) Current Visit: Yes Status: Acute Qualifiers: Heart failure type: combined systolic and diastolic Qualified Code(s): I50.43 - Acute on chronic combined systolic (congestive) and diastolic (congestive) heart failure Plan to address problem: Possibly from volume overload May need hemodialysis Cardiology nephrology consult requested (2) Junctional bradycardia Current Visit: Yes Status: Chronic Plan to address problem: Admit to telemetry Check telemetry strips (3) End stage renal disease Current Visit: Yes Status: Chronic Plan to address problem: May end up on dialysis Nephrology consulted (4) History of CVA with residual deficit Current Visit: Yes Status: Chronic Plan to address problem: Supportive care (5) Hyperkalemia Current Visit: Yes Status: Acute Plan to address problem: Hyperkalemia treated Check BMP (6) Hx of cancer of lung Current Visit: Yes Status: Chronic Plan to address problem: In remission (7) Hypomagnesemia Current Visit: Yes Status: Acute Plan to address problem: IV magnesium to be given (8) Insulin dependent diabetes mellitus Current Visit: Yes Status: Chronic Plan to address problem: Continue home insulin and coverage Check A1c (9) HTN (hypertension) Current Visit: Yes Status: Chronic Qualifiers: Hypertension type: essential hypertension Qualified Code(s): I10 - Es sential (primary) hypertension Plan to address problem: Continue antihypertensives (10) NSTEMI (non-ST elevated myocardial infarction) Current Visit: Yes Status: Acute Plan to address problem: Elevated troponin may be secondary to end-stage renal disease Cardiology consult was requested (11) Hyperlipidemia Current Visit: Yes Status: Chronic Qualifiers: Hyperlipidemia type: mixed hyperlipidemia Qualified Code(s): E78.2 - Mixed hyperlipidemia Plan to address problem: Continue statins (12) DVT prophylaxis Current Visit: Yes Status: Acute Plan to address problem: On heparin and GI prophylaxis Subjective Date of service: 08/03/19 Principal diagnosis: CHF exacerbation, volume overload, end-stage renal disease Interval history: Symptomatically better Objective - Constitutional Vitals: Vital Signs - 12hr 08/02/19 08/03/19 08/03/19 23:00 00:32 04:31 Temperature 98.4 F 98.2 F Pulse Rate 59 L 50 L 58 L Pulse Rate [ Anterior Bilateral Throughout] Respiratory 20 20 Rate Respiratory Rate [Anterior Bilateral Throughout] Blood Pressure 156/62 124/61 O2 Sat by Pulse 97 91 Oximetry 08/03/19 08/03/19 08/03/19 07:16 07:44 07:47 Temperature 98.5 F Pulse Rate Pulse Rate [ 59 L Anterior Bilateral Throughout] Respiratory 18 Rate Respiratory 18 Rate [Anterior Bilateral Throughout] Blood Pressure 143/54 O2 Sat by Pulse 95 Oximetry 08/03/19 07:48 Temperature Pulse Rate Pulse Rate [ Anterior Bilateral Throughout] Respiratory Rate Respiratory Rate [Anterior Bilateral Throughout] Blood Pressure O2 Sat by Pulse 95 Oximetry General appearance: Present: no acute distress, well-nourished - EENT Eyes: PERRL, EOM intact ENT: hearing intact, clear oral mucosa Ears: bilateral: normal - Neck Neck: supple, normal ROM - Respiratory Respiratory effort: normal Respiratory: bilateral: CTA - Breasts Breasts: normal - Cardiovascular Heart rate: 78 Rhythm: regular Heart Sounds: Present: S1 & S2. Absent: gallop, rub Extremities: no ischemia, pulses intact, No edema, normal color, Full ROM - Gastrointestinal General gastrointestinal: Present: soft, non-tender, non-distended, normal bowel sounds - Genitourinary Male genitourinary: normal - Integumentary Integumentary: clear, warm, dry - Musculoskeletal Musculoskeletal: 1, strength equal bilaterally - Neurologic Neurologic: moves all extremities - Psychiatric Psychiatric: memory intact, appropriate mood/affect, intact judgment & insight - Labs CBC & Chem 7: 08/03/19 05:09 08/03/19 05:09 Labs: Abnormal lab results 08/02/19 08/02/19 08/03/19 Range/Units 12:47 15:40 05:09 RBC (3.65-5.03) M/mm3 Hgb (11.8-15.2) gm/dl Hct (35.5-45.6) % Walton % (Auto) (0.0-7.3) % Eos % (Auto) (0.0-4.3) % Lymph # (1.2-5.4) K/mm3 Chloride 111.7 H (98-107) mmol/L Carbon Dioxide 16 L (22-30) mmol/L BUN 62 H (9-20) mg/dL Creatinine 5.6 H (0.8-1.5) mg/dL POC Glucose 147 H 174 H (70-105) Albumin (3.9-5) g/dL 08/03/19 08/03/19 Range/Units 05:09 05:09 RBC 3.23 L (3.65-5.03) M/mm3 Hgb 10.0 L (11.8-15.2) gm/dl Hct 29.7 L (35.5-45.6) % [place] % (Auto) 8.6 H (0.0-7.3) % Eos % (Auto) 5.4 H (0.0-4.3) % Lymph # 0.8 L (1.2-5.4) K/mm3 Chloride 110.9 H (98-107) mmol/L Carbon Dioxide 16 L (22-30) mmol/L BUN 62 H (9-20) mg/dL Creatinine 5.6 H (0.8-1.5) mg/dL POC Glucose (70-105) Albumin 3.5 L (3.9-5) g/dL
[2019-08-03] MEDS ORDERED: MAGNESIUM SULFATE 2 GM/50 ML BAG IV ONE (10:00)
--- NOTE | 2019-08-03 10:14 | Progress Note ---
Assessment and Plan IMpression: * slim on likely ckd stage 4 * hyperkalemia * met acidosis * bradycardia * Lung cancer * Thryroid cancer * HTN Plan: * follow up crcl * cr is stable today * cards following heart rate * yobani close to baseline, followed by nephrology at the [facility] * treat k medically * renal diet * kayexalate prn * added po sodium bicarb * no emergent indication for DIAMOND GRADER at this time Subjective Date of service: 08/03/19 Principal diagnosis: CHF exacerbation, volume overload, end-stage renal disease Interval history: resting in bed today Objective - Exam Narrative Exam: General: No acute distress Head: Atraumatic Eyes: normal appearance ENT: Moist mucous membranes Neck: Normal appearance, no midline tenderness Chest: Clear to auscultation bilaterally CV: Bradycardic regular rhythm Abdomen: Soft, normal bowel sounds, nontender, nondistended, no rebound or guarding Back: Normal inspection Extremity: Normal inspection infection, full range of motion, no calf tenderness or leg edema Neuro: Alert O x 3, no facial asymmetry, speech clear, no gross motor sensory deficit Psych: Appropriate behavior Skin: No rash - Vital Signs Vital signs: Vital Signs - 12hr 08/02/19 08/03/19 08/03/19 23:00 00:32 04:31 Temperature 98.4 F 98.2 F Pulse Rate 59 L 50 L 58 L Pulse Rate [ Anterior Bilateral Throughout] Respiratory 20 20 Rate Respiratory Rate [Anterior Bilateral Throughout] Blood Pressure 156/62 124/61 O2 Sat by Pulse 97 91 Oximetry 08/03/19 08/03/19 08/03/19 07:16 07:44 07:47 Temperature 98.5 F Pulse Rate Pulse Rate [ 59 L Anterior Bilateral Throughout] Respiratory 18 Rate Respiratory 18 Rate [Anterior Bilateral Throughout] Blood Pressure 143/54 O2 Sat by Pulse 95 Oximetry 08/03/19 07:48 Temperature Pulse Rate Pulse Rate [ Anterior Bilateral Throughout] Respiratory Rate Respiratory Rate [Anterior Bilateral Throughout] Blood Pressure O2 Sat by Pulse 95 Oximetry - Lab 08/03/19 05:09 08/03/19 05:09 Most recent lab results Calcium 8.5 mg/dL (8.4-10.2) 08/03/19 05:09 Calcium 8.6 mg/dL (8.4-10.2) 08/03/19 05:09 Magnesium 1.60 mg/dL (1.7-2.3) L 08/02/19 06:00 Medications & Allergies - Medications Allergies/Adverse Reactions: Allergies No Known Allergies Allergy (Unverified 08/01/19 14:37) Home Medications: Home Medications Medication Instructions Recorded Confirmed Last Taken Type Albuterol Sulfate [Proair 2 puff IH QID 08/01/19 08/01/19 Unknown History Respiclick] Atorvastatin Calcium [Lipitor] 80 mg PO DAILY 08/01/19 08/01/19 Unknown History Budesonide/Formoterol Fumarate 2 puff IH BID 08/01/19 08/01/19 Unknown History [Symbicort 80-4.5 Mcg Inhaler] Difluprednate [Durezol 0.05%] 1 drop OP QID 08/01/19 08/01/19 Unknown History Furosemide [Lasix TAB] 40 mg PO BID 08/01/19 08/01/19 Unknown History Glycerin/Propylene Glycol 1 drop OP QID 08/01/19 08/01/19 Unknown History [Artificial Tears Drops] Hydralazine HCl 50 mg PO TID 08/01/19 08/01/19 Unknown History Insulin Aspart (Nf) [Novolog] 12 unit SQ TID 08/01/19 08/01/19 Unknown History Insulin Glargine [Lantus VIAL] 22 unit SUB-Q DAILY 08/01/19 08/01/19 Unknown His tory NIFEdipine [Nifedipine ER] 60 mg PO BID 08/01/19 08/01/19 Unknown History Omeprazole 40 mg PO DAILY 08/01/19 08/01/19 Unknown History Sodium Bicarbonate 650 mg PO BID 08/01/19 08/01/19 Unknown History calcitrioL [Rocaltrol] 1 mcg PO QDAY 08/01/19 08/01/19 Unknown History carvediloL [Coreg] 25 mg PO BID 08/01/19 08/01/19 Unknown History lisinopriL [Zestril] 20 mg PO QDAY 08/01/19 08/01/19 Unknown History Active Medications: Generic Name Dose Route Start Last Admin Trade Name Freq PRN Reason Stop Dose Admin Acetaminophen 650 mg 08/01/19 23:55 Tylenol PO Q4H PRN Pain MILD(1-3)/Fever >100.5/LEDEZMA Albuterol 2.5 mg 08/02/19 08:00 08/03/19 07:47 Proventil IH Not Given QIDRT SCOT Albuterol 2.5 mg 08/02/19 00:08 Proventil IH Q4HRT PRN Shortness Of Breath Arformoterol Tartrate 15 mcg 08/02/19 08:00 08/03/19 07:47 Brojacquesa Nebu IH 15 mcg Q12HRT SCOT Administration Budesonide 0.5 mg 08/02/19 08:00 08/03/19 07:46 Pulmicort IH 0.5 mg Q12HRT SCOT Administration Calcitriol 1 mcg 08/02/19 10:00 08/03/19 09:20 Rocaltrol PO 1 mcg QDAY SCOT Administration Carvedilol 12.5 mg 08/02/19 13:49 08/03/19 09:21 Coreg PO 12.5 mg BID SCOT Administration Diphenhydramine HCl 25 mg 08/02/19 08:27 08/02/19 18:18 Benadryl PO 25 mg Q6H PRN Administration Itching Furosemide 40 mg 08/02/19 06:00 08/03/19 05:04 Lasix PO 40 mg BID@0600,1800 SCOT Administration Heparin Sodium (Porcine) 5,000 unit 08/03/19 10:00 Heparin SUB-Q Q12HR [facility] Hydralazine HCl 50 mg 08/02/19 08:00 08/03/19 09:21 Apresoline PO 50 mg TID SCOT Administration Hydromorphone HCl 0.5 mg 08/01/19 23:55 Dilaudid IV Q3H PRN Pain , Severe (7-10) Magnesium Sulfate 2 gm in 50 mls @ 25 mls/hr 08/03/19 10:00 Magnesium Sulfate 2gm/50ml IV 08/03/19 11:59 ONCE ONE Insulin Glargine 22 units 08/02/19 10:00 08/03/19 09:21 Lantus SUB-Q 22 units DAILY SCOT Administration Insulin Human Lispro 0 unit 08/03/19 11:30 Humalog SUB-Q ACHS [facility] Protocol Lisinopril 20 mg 08/02/19 10:00 08/03/19 09:20 Zestril PO 20 mg QDAY SCOT Administration Miscellaneous Medication 1 drop 08/02/19 10:00 Difluprednate [Durezol 0.05%] OP QID [facility] Miscellaneous Medication 1 drop 08/02/19 10:00 Glycerin/Propylene Glycol [Artificial Tears Drops] OP QID [facility] Nifedipine 60 mg 08/01/19 23:45 08/03/19 09:21 Procardia Xl PO 60 mg BID SCOT Administration Ondansetron HCl 4 mg 08/01/19 23:55 Zofran IV Q8H PRN Nausea And Vomiting Oxycodone/Acetaminophen 1 tab 08/01/19 23:55 Percocet 5/325 PO Q6H PRN Pain, Moderate (4-6) Pantoprazole Sodium 40 mg 08/02/19 10:00 08/03/19 09:21 Protonix PO 40 mg DAILY SCOT Administration Sodium Bicarbonate 1,300 mg 08/02/19 09:57 08/03/19 09:21 Sodium Bicarbonate PO 1,300 mg BID SCOT Administration Sodium Chloride 10 ml 08/02/19 10:00 08/03/19 09:44 Sodium Chloride Flush Syringe 10 Ml IV Not Given BID SCOT Sodium Chloride 10 ml 08/01/19 23:55 Sodium Chloride Flush Syringe 10 Ml IV PRN PRN LINE FLUSH
--- NOTE | 2019-08-03 10:16 | Progress Note ---
Assessment and Plan IMpression: * slim on likely ckd stage 4 * hyperkalemia * met acidosis * bradycardia * Lung cancer * Thryroid cancer * HTN Plan: * follow up crcl * cr is stable today * hold ila inhibitor with hyperkalemia and worsening renal function * cards following heart rate * yobani close to baseline, followed by nephrology at the [facility] * treat k medically * renal diet * kayexalate prn * added po sodium bicarb * no emergent indication for OPERATING SYSTEM PROGRAMMER at this time Subjective Date of service: 08/03/19 Principal diagnosis: CHF exacerbation, volume overload, end-stage renal disease Interval history: resting in bed today Objective - Exam Narrative Exam: General: No acute distress Head: Atraumatic Eyes: normal appearance ENT: Moist mucous membranes Neck: Normal appearance, no midline tenderness Chest: Clear to auscultation bilaterally CV: Bradycardic regular rhythm Abdomen: Soft, normal bowel sounds, nontender, nondistended, no rebound or guarding Back: Normal inspection Extremity: Normal inspection infection, full range of motion, no calf tenderness or leg edema Neuro: Alert O x 3, no facial asymmetry, speech clear, no gross motor sensory deficit Psych: Appropriate behavior Skin: No rash - Vital Signs Vital signs: Vital Signs - 12hr 08/02/19 08/03/19 08/03/19 23:00 00:32 04:31 Temperature 98.4 F 98.2 F Pulse Rate 59 L 50 L 58 L Pulse Rate [ Anterior Bilateral Throughout] Respiratory 20 20 Rate Respiratory Rate [Anterior Bilateral Throughout] Blood Pressure 156/62 124/61 O2 Sat by Pulse 97 91 Oximetry 08/03/19 08/03/19 08/03/19 07:16 07:44 07:47 Temperature 98.5 F Pulse Rate Pulse Rate [ 59 L Anterior Bilateral Throughout] Respiratory 18 Rate Respiratory 18 Rate [Anterior Bilateral Throughout] Blood Pressure 143/54 O2 Sat by Pulse 95 Oximetry 08/03/19 07:48 Temperature Pulse Rate Pulse Rate [ Anterior Bilateral Throughout] Respiratory Rate Respiratory Rate [Anterior Bilateral Throughout] Blood Pressure O2 Sat by Pulse 95 Oximetry - Lab 08/03/19 05:09 08/03/19 05:09 Most recent lab results Calcium 8.5 mg/dL (8.4-10.2) 08/03/19 05:09 Calcium 8.6 mg/dL (8.4-10.2) 08/03/19 05:09 Magnesium 1.60 mg/dL (1.7-2.3) L 08/02/19 06:00 Medications & Allergies - Medications Allergies/Adverse Reactions: Allergies No Known Allergies Allergy (Unverified 08/01/19 14:37) Home Medications: Home Medications Medication Instructions Recorded Confirmed Last Taken Type Albuterol Sulfate [Proair 2 puff IH QID 08/01/19 08/01/19 Unknown History Respiclick] Atorvastatin Calcium [Lipitor] 80 mg PO DAILY 08/01/19 08/01/19 Unknown History Budesonide/Formoterol Fumarate 2 puff IH BID 08/01/19 08/01/19 Unknown History [Symbicort 80-4.5 Mcg Inhaler] Difluprednate [Durezol 0.05%] 1 drop OP QID 08/01/19 08/01/19 Unknown History Furosemide [Lasix TAB] 40 mg PO BID 08/01/19 08/01/19 Unknown History Glycerin/Propylene Glycol 1 drop OP QID 08/01/19 08/01/19 Unknown History [Artificial Tears Drops] Hydralazine HCl 50 mg PO TID 08/01/19 08/01/19 Unknown History Insulin Aspart (Nf) [Novolog] 12 unit SQ TID 08/01/19 08/01/19 Unknown History Insulin Glargine [Lantus VIAL] 22 unit SUB-Q DAILY 08/01/19 08/01/19 Unknown History NIFEdipine [Nifedipine ER] 60 mg PO BID 08/01/19 08/01/19 Unknown History Omeprazole 40 mg PO DAILY 08/01/19 08/01/19 Unknown History Sodium Bicarbonate 650 mg PO BID 08/01/19 08/01/19 Unknown History calcitrioL [Rocaltrol] 1 mcg PO QDAY 08/01/19 08/01/19 Unknown History carvediloL [Coreg] 25 mg PO BID 08/01/19 08/01/19 Unknown History lisinopriL [Zestril] 20 mg PO QDAY 08/01/19 08/01/19 Unknown History Active Medications: Generic Name Dose Route Start Last Admin Trade Name Freq PRN Reason Stop Dose Admin Acetaminophen 650 mg 08/01/19 23:55 Tylenol PO Q4H PRN Pain MILD(1-3)/Fever >100.5/LEDEZMA Albuterol 2.5 mg 08/02/19 08:00 08/03/19 07:47 Proventil IH Not Given QIDRT SCOT Albuterol 2.5 mg 08/02/19 00:08 Proventil IH Q4HRT PRN Shortness Of Breath Arformoterol Tartrate 15 mcg 08/02/19 08:00 08/03/19 07:47 Brovana Nebu IH 15 mcg Q12HRT SCOT Administration Budesonide 0.5 mg 08/02/19 08:00 08/03/19 07:46 Pulmicort IH 0.5 mg Q12HRT SCOT Administration Calcitriol 1 mcg 08/02/19 10:00 08/03/19 09:20 Rocaltrol PO 1 mcg QDAY SOCT Administration Carvedilol 12.5 mg 08/02/19 13:49 08/03/19 09:21 Coreg PO 12.5 mg BID SCOT Administration Diphenhydramine HCl 25 mg 08/02/19 08:27 08/02/19 18:18 Benadryl PO 25 mg Q6H PRN Administration Itching Furosemide 40 mg 08/02/19 06:00 08/03/19 05:04 Lasix PO 40 mg BID@0600,1800 SCOT Administration Heparin Sodium (Porcine) 5,000 unit 08/03/19 10:00 Heparin SUB-Q Q12HR ON LICENSE OF [facility] Hydralazine HCl 50 mg 08/02/19 08:00 08/03/19 09:21 Apresoline PO 50 mg TID SCOT Administration Hydromorphone HCl 0.5 mg 08/01/19 23:55 Dilaudid IV Q3H PRN Pain , Severe (7-10) Magnesium Sulfate 2 gm in 50 mls @ 25 mls/hr 08/03/19 10:00 Magnesium Sulfate 2gm/50ml IV 08/03/19 11:59 ONCE ONE Insulin Glargine 22 units 08/02/19 10:00 08/03/19 09:21 Lantus SUB-Q 22 units DAILY SCOT Administration Insulin Human Lispro 0 unit 08/03/19 11:30 Humalog SUB-Q ACHS ON LICENSE OF [facility] Protocol Lisinopril 20 mg 08/02/19 10:00 08/03/19 09:20 Zestril PO 20 mg QDAY SCOT Administration Miscellaneous Medication 1 drop 08/02/19 10:00 Difluprednate [Durezol 0.05%] OP QID ON LICENSE OF [facility] Miscellaneous Medication 1 drop 08/02/19 10:00 Glycerin/Propylene Glycol [Artificial Tears Drops] OP QID ON LICENSE OF [facility] Nifedipine 60 mg 08/01/19 23:45 08/03/19 09:21 Procardia Xl PO 60 mg BID SCOT Administration Ondansetron HCl 4 mg 08/01/19 23:55 Zofran IV Q8H PRN Nausea And Vomiting Oxycodone/Acetaminophen 1 tab 08/01/19 23:55 Percocet 5/325 PO Q6H PRN Pain, Moderate (4-6) Pantoprazole Sodium 40 mg 08/02/19 10:00 08/03/19 09:21 Protonix PO 40 mg DAILY SCOT Administration Sodium Bicarbonate 1,300 mg 08/02/19 09:57 08/03/19 09:21 Sodium Bicarbonate PO 1,300 mg BID SCOT Administration Sodium Chloride 10 ml 08/02/19 10:00 08/03/19 09:44 Sodium Chloride Flush Syringe 10 Ml IV Not Given BID SCOT Sodium Chloride 10 ml 08/01/19 23:55 Sodium Chloride Flush Syringe 10 Ml IV PRN PRN LINE FLUSH
[2019-08-03] MEDS: HEPARIN 5,000 UNIT/1 ML VIAL SUB-Q SCH ×2 (11:05→21:22)
[2019-08-03] MEDS: diphenhydrAMINE 25 MG CAP PO PRN ×2 (11:07→17:22)
[2019-08-03] MEDS: INSULIN LISPRO 100 UNIT/ML SUB-Q SCH ×3 (12:31→22:08)
[2019-08-03 14:20] LABS: Creatinine,Urine 73.6 mg/dL (0.1-20.0)
[2019-08-03] MEDS: HYPROMELLOSE 0.5% OPHTH SOLN 15 ML OU SCH ×3 (14:20→21:16)
--- NOTE | 2019-08-03 14:30 | Progress Note ---
Assessment and Plan Telemetry showed sinus rythm,after decreasing dose of Coreg,heart rate improved,continue to monitor. Subjective Date of service: 08/03/19 Principal diagnosis: CHF exacerbation, volume overload, end-stage renal disease Interval history: No cardiac symptoms. Objective Vital Signs Temp Pulse Pulse Resp Resp BP BP 08/03/19 11:31 98.3 F 18 156/65 08/03/19 10:57 61 08/03/19 07:48 08/03/19 07:47 59 L 18 08/03/19 07:44 98.5 F 18 143/54 08/03/19 07:16 08/03/19 04:31 98.2 F 58 L 20 124/61 08/03/19 00:32 98.4 F 50 L 20 156/62 08/02/19 23:00 59 L 08/02/19 21:24 50 L 08/02/19 20:22 08/02/19 20:20 57 L 20 08/02/19 20:05 97.6 F 50 L 20 157/63 08/02/19 18:20 48 L 20 08/02/19 16:23 53 L 16 08/02/19 15:40 98.9 F 18 L 18 174/73 BP Pulse Ox 08/03/19 11:31 08/03/19 10:57 08/03/19 07:48 95 08/03/19 07:47 08/03/19 07:44 08/03/19 07:16 95 08/03/19 04:31 91 08/03/19 00:32 97 08/02/19 23:00 08/02/19 21:24 08/02/19 20:22 96 08/02/19 20:20 08/02/19 20:05 98 08/02/19 18:20 141/85 99 08/02/19 16:23 08/02/19 15:40 9 L - Physical Examination General: No Apparent Distress HEENT: Positive: PERRL Neck: Positive: neck supple Cardiac: Positive: Reg Rate and Rhythm Lungs: Positive: Decreased Breath Sounds Neuro: Positive: Grossly Intact Abdomen: Positive: Unremarkable /Rectal: Other Skin: Positive: Clear Musculoskeletal: Normal Range of Motion, other (c/o right hip pain ) Extremities: Present: normal - Labs and Meds Cardiac Enzymes 08/03/19 Range/Units 05:09 AST 13 (5-40) units/L CBC 08/03/19 Range/Units 05:09 WBC 4.7 (4.5-11.0) K/mm3 RBC 3.23 L (3.65-5.03) M/mm3 Hgb 10.0 L (11.8-15.2) gm/dl Hct 29.7 L (35.5-45.6) % Plt Count 173 (140-440) K/mm3 Lymph # 0.8 L (1.2-5.4) K/mm3 [place] # 0.4 (0.0-0.8) K/mm3 Eos # 0.3 (0.0-0.4) K/mm3 Baso # 0.0 (0.0-0.1) K/mm3 Comprehensive Metabolic Panel 08/03/19 08/03/19 Range/Units 05:09 05:09 Sodium 143 142 (137-145) mmol/L Potassium 4.5 4.5 (3.6-5.0) mmol/L Chloride 111.7 H 110.9 H (98-107) mmol/L Carbon Dioxide 16 L 16 L (22-30) mmol/L BUN 62 H 62 H (9-20) mg/dL Creatinine 5.6 H 5.6 H (0.8-1.5) mg/dL Glucose 83 85 (75-100) mg/dL Calcium 8.5 8.6 (8.4-10.2) mg/dL AST 13 (5-40) units/L ALT 14 (7-56) units/L Alkaline Phosphatase 71 (35-129) units/L Total Protein 7.1 (6.3-8.2) g/dL Albumin 3.5 L (3.9-5) g/dL - Imaging and Cardiology EKG: report reviewed (Heart rate of 51, second-degree AV block.)
[2019-08-03 14:46] LABS: Creatinine 24 Hour,Urine 1.4 (0.8-2.8)
[2019-08-04] MEDS: FUROSEMIDE 40 MG TAB PO SCH ×2 (05:24→18:45)
[2019-08-04] MEDS: diphenhydrAMINE 25 MG CAP PO PRN (05:27)
[2019-08-04] MEDS: INSULIN LISPRO 100 UNIT/ML SUB-Q SCH ×3 (08:00→18:44)
[2019-08-04 08:13] LABS: Basophils % (Auto) 0.7 % (0.0-1.8); Eosinophils # (Auto) 0.2 K/mm3 (0.0-0.4); Hematocrit 32.1 % (35.5-45.6); Hemoglobin 10.7 gm/dl (11.8-15.2); Lymphocytes # (Auto) 0.6 K/mm3 (1.2-5.4); Lymphocytes % (Auto) 12.4 % (13.4-35.0); Mean Corpuscular HGB Conc 33 % (32-34); Mean Corpuscular Volume 92 fl (84-94); Monocytes # (Auto) 0.5 K/mm3 (0.0-0.8); Monocytes % (Auto) 9.5 % (0.0-7.3); Platelet Count 188 K/mm3 (140-440); Red Blood Count 3.49 M/mm3 (3.65-5.03); Red Cell Distribution Width 13.3 % (13.2-15.2)
[2019-08-04] MEDS: oxyCODONE /ACETAMINOPHEN 5-325MG TAB PO PRN ×2 (08:15→15:10)
[2019-08-04 08:27] LABS: Calcium 8.8 mg/dL (8.4-10.2)
[2019-08-04] MEDS: SODIUM BICARBONATE 650 MG TAB PO SCH ×2 (08:30→15:30)
[2019-08-04] MEDS: BUDESONIDE 0.5 MG/2 ML NEBU IH SCH (08:42)
[2019-08-04] MEDS: ARFORMOTEROL 15 MCG/2 ML NEBU IH SCH (08:45)
[2019-08-04] MEDS: HYDROmorphone 1 MG/1 ML INJ IV PRN ×3 (08:45→17:50)
[2019-08-04] MEDS: hydrALAZINE 25 MG TAB PO SCH (08:57)
[2019-08-04] MEDS: CALCITRIOL 0.5 MCG CAP PO SCH (10:26)
[2019-08-04] MEDS: PANTOPRAZOLE 40 MG TAB PO SCH (10:27)
[2019-08-04] MEDS: NIFEdipine XL 60 MG TAB PO SCH (10:27)
[2019-08-04] MEDS: carvediloL 25 MG TAB PO SCH (10:27)
[2019-08-04] MEDS: HEPARIN 5,000 UNIT/1 ML VIAL SUB-Q SCH (10:27)
[2019-08-04] MEDS: INSULIN GLARGINE 100 UNITS/ML SUB-Q SCH (10:37)
[2019-08-04] MEDS: HYPROMELLOSE 0.5% OPHTH SOLN 15 ML OU SCH ×2 (10:37→18:43)
[2019-08-04 10:54] VITALS: BP 145/53
[2019-08-04] MEDS: ALBUTEROL 2.5 MG/3 ML NEBU IH SCH ×3 (13:53→18:47)
--- NOTE | 2019-08-04 14:09 | Progress Note ---
Assessment and Plan ALLEN on likely CKD ckd stage 4 / hyperkalemia Pt presented with c/o dyspnea, weakness and volume overload which appear to have been secondary to renal insufficiency. He states his symptoms have resolved. Serum K+ improving. Nephrology following - no emergent indication for TECHNOLOGY PROJECT MANAGER at this time. Minimally elevated troponin Pt denies any occurrence of chest pain. No known prior cardiac issues. ECG with no acute ischemic changes. Echo reviewed - EF 50-55%, RVSP 37mmHg. Minimal troponin elevation currently appears nonspecific in setting of renal insufficiency, HTN, anemia. Can consider stress test as OP once medically stabilized. HTN Stable. Transient junctional bradycardia / transient 2nd deg Type I AV block In setting of hyperkalemia and while receiving PO coreg 25mg BID. PO coreg was reduced to 12.5mg BID and HR currently in 60s with sinus bradycardia 40s noted overnight. Will d/c BB and increase hydralazine for BP optimization. Thyroid profile WNL. Anemia Likely r/t CKD. Stable. Monitor CBC. History of lung cancer S/p chemo and radiation History of thyroid cancer S/p surgery 20 years ago Currently stable cardiac status. Pt may discharge from cardiology standpoint on present cardiac regimen. Can consider stress test as OP once medically stabilized. Recommend follow up in our office with Dr. De La Garza within 1-2 weeks of discharge ([phone]). The patient has been seen in conjunction with Dr. Madsen who agrees with the assessment and plan of care. Subjective Date of service: 08/04/19 Principal diagnosis: CHF exacerbation, volume overload, end-stage renal disease Interval history: pt resting in bed, no current complaints, states he is feeling well. in SR on tele with HR 60s, SB HR 45 noted overnight. Objective Last Vital Signs Temp 98.3 F 08/04/19 08:05 Pulse 56 L 08/04/19 08:05 Resp 18 08/04/19 08:05 BP 145/53 08/04/19 08:05 Pulse Ox 96 08/04/19 08:48 - Physical Examination General: No Apparent Distress HEENT: Positive: PERRL Neck: Positive: neck supple Cardiac: Positive: Reg Rate and Rhythm, S1/S2 Lungs: Positive: Decreased Breath Sounds Neuro: Positive: Grossly Intact Abdomen: Positive: Unremarkable /Rectal: Other Skin: Positive: Clear Musculoskeletal: Normal Range of Motion, other (c/o right hip pain ) Extremities: Present: normal - Labs and Meds CBC 08/04/19 Range/Units 07:03 WBC 4.7 (4.5-11.0) K/mm3 RBC 3.49 L (3.65-5.03) M/mm3 Hgb 10.7 L (11.8-15.2) gm/dl Hct 32.1 L (35.5-45.6) % Plt Count 188 (140-440) K/mm3 Lymph # 0.6 L (1.2-5.4) K/mm3 [place] # 0.5 (0.0-0.8) K/mm3 Eos # 0.2 (0.0-0.4) K/mm3 Baso # 0.0 (0.0-0.1) K/mm3 Comprehensive Metabolic Panel 08/04/19 Range/Units 07:03 Sodium 143 (137-145) mmol/L Potassium 4.6 (3.6-5.0) mmol/L Chloride 110.7 H (98-107) mmol/L Carbon Dioxide 18 L (22-30) mmol/L BUN 67 H (9-20) mg/dL Creatinine 5.6 H (0.8-1.5) mg/dL Glucose 106 H (75-100) mg/dL Calcium 8.8 (8.4-10.2) mg/dL - Imaging and Cardiology EKG: report reviewed (Heart rate of 51, second-degree AV block.)
[2019-08-04] MEDS ORDERED: hydrALAZINE 25 MG TAB PO SCH (15:00)
--- NOTE | 2019-08-04 15:12 | Discharge Summary ---
Providers - Providers Date of Admission: 08/01/19 17:17 Date of discharge: 08/04/19 Attending physician: MIKE RIVERA 08/01/19 15:50 Consult to Physician [CONS] Urgent Comment: Consulting Provider: KIMBERLY DESAI Physician Instructions: Reason For Exam: nstemi 08/01/19 17:06 Consult to Physician [CONS] Urgent Comment: Consulting Provider: TASHI TOURE Physician Instructions: Reason For Exam: hx of renal insuf, hyperkalemia [facility] Condition: Stable Hospital course: 73-year-old male with past medical history hypertension, diabetes, COPD without home oxygen use, renal insufficiency not on dialysis, lung cancer treated with chemotherapy and radiation, thyroid cancer (current monitoring without active treatment), CVA residual right-sided weakness presents to the hospital complains of shortness of breath with exertion 2 weeks. Patient has associated weakness with shortness of breath episodes. He complains of some mild epigastric discomfort with deep inspiration. And lower back Today he felt scared to get up and walk due to the symptoms. He denies nausea, vomiting, fever, chest pain, diarrhea, or recent travel. Patient does not smoke cigarettes currently. PMD affiliated with the [facility]. Patient denies cardiac history. He is unsure of his current medications. (1) Acute exacerbation of CHF (congestive heart failure) Current Visit: Yes Status: Acute Qualifiers: Heart failure type: combined systolic and diastolic Qualified Code(s): I50.43 - Acute on chronic combined systolic (congestive) and diastolic ( congestive) heart failure Plan to address problem: Possibly from volume overload May need hemodialysis 24 hour urine collected Will follow with Nephrology as outpatient (2) Junctional bradycardia In setting of hyperkalemia and while receiving PO coreg 25mg BID. PO coreg was reduced to 12.5mg BID and HR currently in 60s with sinus bradycardia 40s noted overnight. Will d/c BB and increase hydralazine for BP optimization. Thyroid profile WNL. (3) End stage renal disease Current Visit: Yes Status: Chronic Plan to address problem: May end up on dialysis Nephrology consulted F/u as out patient (4) History of CVA with residual deficit Current Visit: Yes Status: Chronic Plan to address problem: Supportive care (5) Hyperkalemia Current Visit: Yes Status: Acute Plan to address problem: Hyperkalemia treated Check BMP (6) Hx of cancer of lung Current Visit: Yes Status: Chronic Plan to address problem: Resolved (7) Hypomagnesemia Current Visit: Yes Status: Acute Plan to address problem: IV magnesium to be given Corrected (8) Insulin dependent diabetes mellitus Current Visit: Yes Status: Chronic Plan to address problem: Continue home insulin and coverage Check A1c (9) HTN (hypertension) Current Visit: Yes Status: Chronic Qualifiers: Hypertension type: essential hypertension Qualified Code(s): I10 - Essential (primary) hypertension Plan to address problem: Continue antihypertensives (10) NSTEMI (non-ST elevated myocardial infarction) Current Visit: Yes Status: Acute Plan to address problem: Elevated troponin may be secondary to end-stage renal disease Cardiology consult was requested (11) Hyperlipidemia Current Visit: Yes Status: Chronic Qualifiers: Hyperlipidemia type: mixed hyperlipidemia Qualified Code(s): E78.2 - Mixed hyperlipidemia Plan to address problem: Continue statins Disposition: DC- TO HOME OR SELFCARE - Discharge Diagnoses (1) Acute exacerbation of CHF (congestive heart failure) Status: Acute Qualifiers: Qualified Code(s): I50.43 - Acute on chronic combined systolic (congestive) and diastolic (congestive) heart failure (2) Junctional bradycardia Status: Chronic (3) End stage renal disease Status: Chronic (4) History of CVA with residual deficit Status: Chronic (5) Hyperkalemia Status: Acute (6) Hx of cancer of lung Status: Chronic (7) Hypomagnesemia Status: Acute (8) Insulin dependent diabetes mellitus Status: Chronic (9) HTN (hypertension) Status: Chronic Qualifiers: Qualified Code(s): I10 - Essential (primary) hypertension (10) NSTEMI (non-ST elevated myocardial infarction) Status: Acute (11) Hyperlipidemia Status: Chronic Qualifiers: Qualified Code(s): E78.2 - Mixed hyperlipidemia (12) DVT prophylaxis Status: Acute Core Measure Documentation - Palliative Care Palliative Care/ Comfort Measures: Not Applicable - Core Measures Any of the following diagnoses?: heart failure - Heart Failure Discharge Requirements EVE/ARB for LVSD if EF <40%: Yes Beta rossana at discharge: Yes Exam - Constitutional Vitals: Temp Pulse Resp BP Pulse Ox 98.3 F 56 L 18 145/53 96 08/04/19 08:05 08/04/19 08:05 08/04/19 08:05 08/04/19 08:05 08/04/19 08:48 General appearance: Present: no acute distress, well-nourished - EENT Eyes: Present: PERRL ENT: hearing intact, clear oral mucosa - Neck Neck: Present: supple, normal ROM - Respiratory Respiratory effort: normal Respiratory: bilateral: CTA - Cardiovascular Heart rate: 77 Rhythm: regular Heart Sounds: Present: S1 & S2. Absent: rub, click - Extremities Extremities: no ischemia, pulses intact, pulses symmetrical, No edema Peripheral Pulses: within normal limits - Abdominal General gastrointestinal: Present: soft, non-tender, non-distended, normal bowel sounds Male genitourinary: Present: normal - Rectal Rectal Exam: deferred - Integumentary Integumentary: Present: clear, warm, dry - Musculoskeletal Musculoskeletal: gait normal, strength equal bilaterally - Psychiatric Psychiatric: appropriate mood/affect, intact judgment & insight - Neurologic Neurologic: CNII-XII intact, moves all extremities - Allied Health Allied health notes reviewed: nursing, case management Plan Activity: no restrictions Diet: renal Follow up with: DIANN MALINBROAD TOP MD ERICKSON [Primary Care Provider] - 3-5 Days ZENAIDA SANDERS MD [Staff Physician] - 7 Days JOHN RODRIGUEZ MD [Staff Physician] - 7 Days
--- NOTE | 2019-08-04 15:13 | Progress Note ---
Assessment and Plan - Patient Problems (1) Chronic kidney disease, stage V Current Visit: Yes Status: Acute Plan to address problem: chronic kidney disease stage V. Denies any significant uremic symptoms [facility] he is anxious not to start dialysis unless absolutely necessary f he is discharged, he needs [facility] continue diuretics extensive counseling done with the patient regarding symptoms of uremia (2) Diabetes Current Visit: Yes Status: Chronic Qualifiers: Chronic kidney disease stage: stage 5, not on chronic dialysis Plan to address problem: diabetes mellitus with complications Continue medications monitor Fingerstick (3) HTN (hypertension) Current Visit: Yes Status: Chronic Qualifiers: Hypertension type: essential hypertension Qualified Code(s): I10 - Essential (primary) hypertension Plan to address problem: hypertension, controlled. Continue current medications (4) Acidosis Current Visit: Yes Status: Acute Plan to address problem: metabolic acidosis secondary to chronic kidney disease Sodium bicarbonate. 1950 mg 3 times a day Subjective Principal diagnosis: CHF exacerbation, volume overload, end-stage renal disease Interval history: 73-year-old gentleman with medical history significant for chronic kidney disease hypertension, diabetes COPD admitted with complaints of shortness of breath. Patient was seen todayin shortness of breath is improved. denies any nausea, vomiting or poor appetite. Denies any lower extremity sw elling Objective - Vital Signs Vital signs: Vital Signs - 12hr 08/04/19 08/04/19 08/04/19 03:39 05:42 08:00 Temperature 98.4 F Pulse Rate 59 L 48 L Pulse Rate [ 75 Anterior Bilateral Throughout] Respiratory 20 Rate Respiratory 20 Rate [Anterior Bilateral Throughout] Blood Pressure 130/54 O2 Sat by Pulse 93 Oximetry 08/04/19 08/04/19 08:05 08:48 Temperature 98.3 F Pulse Rate 56 L Pulse Rate [ Anterior Bilateral Throughout] Respiratory 18 Rate Respiratory Rate [Anterior Bilateral Throughout] Blood Pressure 145/53 O2 Sat by Pulse 93 96 Oximetry - General Appearance General appearance: well-developed, well-nourished EENT: ATNC, mucous membranes moist Neck: no JVD Respiratory: Present: Clear to Ascultation Cardiology: regular, S1S2 Gastrointestinal: normal, normoactive bowel sounds Integumentary: no rash Neurologic: no focal deficit, alert and oriented x3, CN 3-12 intact Psychiatric: mood/affect appropriate - Lab 08/04/19 07:03 08/04/19 07:03 Most recent lab results Calcium 8.8 mg/dL (8.4-10.2) 08/04/19 07:03 Magnesium 2.00 mg/dL (1.7-2.3) 08/03/19 16:37 Urine Creatinine 73.6 mg/dL (0.1-20.0) H 08/02/19 Unknown - Imaging Chest x-ray: image reviewed ([facility] chest x-raywithout any significant pulmonary edema) Medications & Allergies - Medications Allergies/Adverse Reactions: Allergies No Known Allergies Allergy (Unverified 08/01/19 14:37) Home Medications: Home Medications Medication Instructions Recorded Confirmed Last Taken Type Albuterol Sulfate [Proair 2 puff IH QID 08/01/19 08/01/19 Unknown History Respiclick] Atorvastatin Calcium [Lipitor] 80 mg PO DAILY 08/01/19 08/01/19 Unknown History Budesonide/Formoterol Fumarate 2 puff IH BID 08/01/19 08/01/19 Unknown History [Symbicort 80-4.5 Mcg Inhaler] Difluprednate [Durezol 0.05%] 1 drop OP QID 08/01/19 08/01/19 Unknown History Furosemide [Lasix TAB] 40 mg PO BID 08/01/19 08/01/19 Unknown History Glycerin/Propylene Glycol 1 drop OP QID 08/01/19 08/01/19 Unknown History [Artificial Tears Drops] Hydralazine HCl 50 mg PO TID 08/01/19 08/01/19 Unknown History Insulin Aspart (Nf) [Novolog] 12 unit SQ TID 08/01/19 08/01/19 Unknown History Insulin Glargine [Lantus VIAL] 22 unit SUB-Q DAILY 08/01/19 08/01/19 Unknown History NIFEdipine [Nifedipine ER] 60 mg PO BID 08/01/19 08/01/19 Unknown History Omeprazole 40 mg PO DAILY 08/01/19 08/01/19 Unknown History Sodium Bicarbonate 650 mg PO BID 08/01/19 08/01/19 Unknown History calcitrioL [Rocaltrol] 1 mcg PO QDAY 08/01/19 08/01/19 Unknown History carvediloL [Coreg] 25 mg PO BID 08/01/19 08/01/19 Unknown History lisinopriL [Zestril] 20 mg PO QDAY 08/01/19 08/01/19 Unknown History Active Medications: Generic Name Dose Route Start Last Admin Trade Name Freq PRN Reason Stop Dose Admin Acetaminophen 650 mg 08/01/19 23:55 08/03/19 21:22 Tylenol PO 650 mg Q4H PRN Administration Pain MILD(1-3)/Fever >100.5/LEDEZMA Albuterol 2.5 mg 08/02/19 08:00 08/04/19 13:53 Proventil IH Not Given QIDRT SCOT Albuterol 2.5 mg 08/02/19 00:08 Proventil IH Q4HRT PRN Shortness Of Breath Arformoterol Tartrate 15 mcg 08/02/19 08:00 08/04/19 08:45 Brovana Nebu IH 15 mcg Q12HRT SCOT Administration Artificial Tears 2 drops 08/03/19 14:00 08/04/19 10:37 Isopto Tears 0.5% OU 2 drops QID SCOT Administration Budesonide 0.5 mg 08/02/19 08:00 08/04/19 08:42 Pulmicort IH 0.5 mg Q12HRT SCOT Administration Calcitriol 1 mcg 08/02/19 10:00 08/04/19 10:26 Rocaltrol PO 1 mcg QDAY SCOT Administration Diphenhydramine HCl 25 mg 08/02/19 08:27 08/04/19 05:27 Benadryl PO 25 mg Q6H PRN Administration Itching Furosemide 40 mg 08/02/19 06:00 08/04/19 05:24 Lasix PO 40 mg BID@0600,1800 SCOT Administration Heparin Sodium (Porcine) 5,000 unit 08/03/19 10:00 08/04/19 10:27 Heparin SUB-Q 5,000 unit Q12HR SCOT Administration Hydralazine HCl 100 mg 08/04/19 15:00 Apresoline PO TID SCOT Hydromorphone HCl 0.5 mg 08/01/19 23:55 Dilaudid IV Q3H PRN Pain , Severe (7-10) Insulin Glargine 22 units 08/02/19 10:00 08/04/19 10:37 Lantus SUB-Q 22 units DAILY SCOT Administration Insulin Human Lispro 0 unit 08/03/19 11:30 08/04/19 08:00 Humalog SUB-Q Not Given ACHS [facility] Protocol Miscellaneous Medication 1 drop 08/02/19 10:00 Difluprednate [Durezol 0.05%] OP QID [facility] Nifedipine 60 mg 08/01/19 23:45 08/04/19 10:27 Procardia Xl PO 60 mg BID SCOT Administration Ondansetron HCl 4 mg 08/01/19 23:55 Zofran IV Q8H PRN Nausea And Vomiting Oxycodone/Acetaminophen 1 tab 08/01/19 23:55 Percocet 5/325 PO Q6H PRN Pain, Moderate (4-6) Pantoprazole Sodium 40 mg 08/02/19 10:00 08/04/19 10:27 Protonix PO 40 mg DAILY SCOT Administration Sodium Bicarbonate 1,300 mg 08/03/19 14:00 08/04/19 08:30 Sodium Bicarbonate PO 1,300 mg TID SCOT Administration Sodium Chloride 10 ml 08/02/19 10:00 08/04/19 10:27 Sodium Chloride Flush Syringe 10 Ml IV 10 ml BID SCOT Administration Sodium Chloride 10 ml 08/01/19 23:55 Sodium Chloride Flush Syringe 10 Ml IV PRN PRN LINE FLUSH
== END 2019-08-04 19:46 | disposition home or self-care (01) | DRG 280 ==
LOC: ED 14:16 → 4A 17:17
PROVIDERS: ADMIT Internal Medicine; ATTEND Internal Medicine
DX: I13.2 Hypertensive heart and chronic kidney disease with heart failure and with stage 5 chronic kidney disease, or end stage renal disease (principal); N18.6 End stage renal disease; I21.4 Non-ST elevation (NSTEMI) myocardial infarction; I50.43 Acute on chronic combined systolic (congestive) and diastolic (congestive) heart failure; E87.2 Acidosis; N17.9 Acute kidney failure, unspecified; I69.354 Hemiplegia and hemiparesis following cerebral infarction affecting left non-dominant side; R00.1 Bradycardia, unspecified; J44.9 Chronic obstructive pulmonary disease, unspecified; E83.42 Hypomagnesemia; E87.5 Hyperkalemia; E11.22 Type 2 diabetes mellitus with diabetic chronic kidney disease; I45.10 Unspecified right bundle-branch block; E78.2 Mixed hyperlipidemia; Z85.118 Personal history of other malignant neoplasm of bronchus and lung; Z79.4 Long term (current) use of insulin; Z79.899 Other long term (current) drug therapy; Z85.850 Personal history of malignant neoplasm of thyroid; Z90.49 Acquired absence of other specified parts of digestive tract; Z82.49 Family history of ischemic heart disease and other diseases of the circulatory system
CPT/HCPCS: 36415; 71045; 76770; 76857; 80048; 80053; 80061; 80307; 81001; 82570; 82962; 83036; 83735; 84439; 84443; 84484; 85025; 85610; 85730; 89050; 93005; 93010; 93306; 94640; 94644; 94760; G0378; J0610; J1170; J1644; J1815; J1940; J3475; J7030